=== PATIENT | female | born 1980 | race Caucasian/White ===

== ENCOUNTER 2024-05-29 20:27 | Emergency (ER) | payer OTHER, SELFPAY ==
[2024-05-29 20:44] VITALS: BP 130/91; PULSE 86; TEMP 37; O2SAT 97; BMI 27.4
--- NOTE | 2024-05-29 20:54 | XR_ITS ---
The [address] [address] Patient Name: YORDY CARDOSO MRN: [id number] date: 1980 Sex: F Assigned Patient Location: ER Current Patient Location: ED.MAIN Accession/Order Number: [id number] Exam Date: 05/29/2024 21:25 Report Date: 05/29/2024 22:21 At the request of: ARIADNE PACE Procedure: XR ankle LT min 3V PROCEDURE: XR ankle LT min 3V HISTORY: injury COMPARISON: None. FINDINGS: BONES:Several tiny calcifications which appear to have corticated margins distal to the medial malleolus. Single corticated ossification adjacent tip of lateral malleolus. Normal appearance of ankle mortise. SOFT TISSUES:Soft tissue swelling surrounding the ankle. EFFUSION:None visible. OTHER: Negative. XR/XR ankle LT min 3V IMPRESSION: 1. No convincing acute bone abnormality. 2. Moderate swelling suggesting soft tissue injury. Electronically authenticated by: CLARA HUGO Date: 05/29/2024 22:21
--- NOTE | 2024-05-29 22:09 | ED.LOWEXI1 ---
HPI HPI - Extremity Injury (Lower) General Chief Complaint: Extremity Injury, Lower Stated Complaint: LEFT LOWER EXTREMITY INJURY Time Seen by Provider: 05/29/24 20:54 Source: patient Mode of arrival: walk-in Limitations: no limitations History of Present Illness HPI Narrative: This 44-year-old female presents for evaluation of left lateral ankle pain swelling and bruising. The patient states that she tripped over her dog yesterday. She has pain with ambulation and has been using crutches. She states her cousin saw her foot and felt that it was cold and told her to come to the emergency department to see if she tore a ligament or something. She denies any additional injury relating to her fall. She states she gets nervous because she has had to be in a cast for different times due to injuries to the left foot and ankle. She has no calf pain or swelling. She declines any for any medications. She has been using an Crow wrap. Related Data Home Medications ?Medication ?Instructions ?Recorded ?Confirmed No Known Home Medications 05/29/24 05/29/24 Allergies Allergy/AdvReac Type Severity Reaction Status Date / Time No Known Drug Allergies Allergy Verified 05/29/24 20:49 Opioid HPI Opioid Management Most Recent Pain and Opioid Data: No Data to Display Review of Systems ROS Status of ROS 10 or more systems reviewed and unremarkable except as noted in history and below PFSH PFSH Social History Little interest or pleasure in doing things: not at all Feeling down, depressed, or hopeless: not at all Exam Narrative Exam Narrative: Vital signs and Nursing Notes reviewed: Patient is not hypoxic with pulse ox 97% on room air General: Awake, alert, oriented, no acute distress, lying comfortably on the stretcher HEENT: Normocephalic atraumatic, mucous membranes are moist and pink, eyes are clear, normal conjunctiva, vision is grossly intact Chest: Lungs are clear to auscultation with good air entry, there is no wheezing rhonchi or rales appreciated no accessory muscle use, patient is speaking in complete sentences-no chest wall tenderness to palpation CVS: Regular rate and rhythm S1-S2, no murmurs rubs or gallops, pulses are brisk and equal bilaterally Extremities: Mild tenderness with bruising at the lateral malleolus. Achilles is intact. Foot is warm and sensate. Dorsalis pedis and posterior tibialis pulses are brisk and equal. Skin: Normal in appearance without rash,pallor, petechiae or purpura Neuro: No focal deficits Constitutional Vital Signs, click to edit/add: Last Vital Signs Temp 98.6 F 05/29/24 20:44 Pulse 86 05/29/24 20:44 Resp 16 05/29/24 20:44 BP 130/91 05/29/24 20:44 Pulse Ox 97 05/29/24 20:44 O2 Del Method Room Air 05/29/24 20:44 Course Vital Signs Vital signs: Vital Signs Temperature 98.6 F 05/29/24 20:44 Pulse Rate 86 05/29/24 20:44 Respiratory Rate 16 05/29/24 20:44 Blood Pressure 130/91 05/29/24 20:44 Pulse Oximetry 97 05/29/24 20:44 Oxygen Delivery Method Room Air 05/29/24 20:44 Temperature 98.6 F 05/29/24 20:44 Pulse Rate 86 05/29/24 20:44 Respiratory Rate 16 05/29/24 20:44 Blood Pressure 130/91 05/29/24 20:44 Pulse Oximetry 97 05/29/24 20:44 Oxygen Delivery Method Room Air 05/29/24 20:44 MDM - Extremity Injury (Lower) MDM Narrative Medical decision making narrative: This 44-year-old female that has had left foot and ankle problems in the past presents for evaluation of left lateral malleolus pain and swelling with some bruising after she tripped over her dog yesterday. She has been using crutches since that time due to pain with ambulation. She is neurovascularly intact. She declined the need for any medications. She had the ankle Crow wrapped and has been using crutches. I reviewed her x-ray which does not show any fracture, dislocation with some mild soft tissue swelling. She was agreeable to an air splint and will follow-up with her family physician. I offered to refer her to outpatient podiatry/orthopedics but she declines at this time stating if it is not broken she does not want to follow-up. Discharge Plan Discharge Chief Complaint: Extremity Injury, Lower Clinical Impression: Ankle sprain and strain Patient Disposition: Home, Self-Care Time of Disposition Decision: 22:09 Condition: Good Prescriptions / Home Meds: No Action No Known Home Medications Print Language: Jordanian Instructions: Ankle Sprain (ED) Referrals: Physician,Non-Staff, [Primary Care Provider] - 1 week Eduardo Davis DPM [Physician] - 1 week
== END 2024-05-29 22:32 | disposition home or self-care (01) ==
PROVIDERS: Emergency Provider Emergency Medicine
DX: S93.402A Sprain of unspecified ligament of left ankle, initial encounter (principal); S96.912A Strain of unspecified muscle and tendon at ankle and foot level, left foot, initial encounter; W01.0XXA Fall on same level from slipping, tripping and stumbling without subsequent striking against object, initial encounter
CPT/HCPCS: 73610; 99285

== ENCOUNTER 2025-03-14 20:14 | Outpatient (REF) | payer OTHER, SELFPAY ==
--- OUTSIDE RECORDS SUMMARY | 2025-03-14 20:32 | XMS_ITS | CCD ---
Author Organization [facility] Care Team Providers Care Camelid Fiber Sorter Name Role Phone FAWWAD, VALLECILLO H Admitting Unavailable FAWWAD, VALLECILLO H Attending Unavailable FAWWAD, VALLECILLO H Primary Care Unavailable FAWWAD, VALLECILLO H Consulting Unavailable KARASIK, DR OCAMPO Admitting Unavailable KARASIK, DR OCAMPO Attending Unavailable FAWWAD, VALLECILLO H Primary Care Unavailable KARASIK, DR OCAMPO Consulting Unavailable KARASIK, DR OCAMPO Admitting Unavailable KARASIK, DR OCAMPO Attending Unavailable FAWWAD, VALLECILLO H Primary Care Unavailable KARASIK, DR OCAMPO Consulting Unavailable ZIEBER, DR JOSE Jj Consulting Unavailable WEST, DR SHAUN Villaseñor Admitting Unavailable WEST, DR SHAUN Villaseñor Attending Unavailable FAWWAD, VALLECILLO H Primary Care Unavailable WEST, DR SHAUN Villaseñor Consulting Unavailable FAWWAD, VALLECILLO H Admitting Unavailable FAWWAD, VALLECILLO H Attending Unavailable FAWWAD, VALLECILLO H Primary Care Unavailable FAWWAD, VALLECILLO H Consulting Unavailable FAWWAD, VALLECILLO H Admitting Unavailable FAWWAD, VALLECILLO H Attending Unavailable FAWWAD, VALLECILLO H Primary Care Unavailable FAWWAD, VALLECILLO H Consulting Unavailable Problems Active Problems Problem ClassificationProblemDateDocumented DateEpisodic/ChronicCardiac dysrhythmias (1 source)Ventricular premature depolarization; Translations: [VENTRICULR PREMATURE DEPOLARIZATION]Onset: 61-75-7755GnlxdxzPclrb screening for suspected conditions (not mental disorders or infectious disease) (10 sources)Encounter for screening mammogram for malignant neoplasm of breast; Translations: [Encounter for screening for malignant neoplasm of cervix]Onset: 36-45-7761Zuaeuwwq Past or Other Problems Problem ClassificationProblemDateDocumented DateEpisodic/ChronicCardiac dysrhythmias (5 sources)Palpitations; Translations: [PALPITATIONS]Onset: 70-35-2877Wjclknwp Immunizations and screening for infectious disease (1 source)Encounter for screening for human papillomavirus (HPV); Translations: [ENC SCREENING HUMAN PAPILLOMAVIRUS]Onset: 25-48-0469Iybpzziw Results Test NameValueInterpretationReference RangeFacilityMG MAMM SCREEN 3D SUDHIR CADon [id number] MAMM SCREEN 3D SUDHIR CADPatient: YORDY CARDOSO Exam Date: 09/03/2021 : 1980 Gender:F Ordering : DR DAMARIS SARAVIA . Admission #: [id number] Family : Order #: [id number] CLICK HERE TO VIEW EXAM RADIOLOGY REPORT PROCEDURE: MAMMOGRAM SCREENING 3D BILATERAL CAD COMPARISON: MG MAMM SUDHIR DIAG W CAD, 02/02/2017. MG MAMM SUDHIR DIAG W CAD, 10/10/2015. INDICATIONS: Screening mammography Calculator Name NCI Breast Cancer Risk Assessment Tool 5 Year Breast Cancer Risk Not Reported. Lifetime Breast Cancer Risk Not Reported. Personal Breast Cancer No Personal Ovarian Cancer No Treatments None Family Cancers None LOCATION: [facility] BREAST COMPOSITION: Heterogeneously dense,which may obscure small masses. FINDINGS: DIAGNOSTIC CATEGORY 1--NEGATIVE. RIGHT BREAST: No significant suspicious finding. No significant change has occurred. LEFT BREAST: No significant suspicious finding. No significant change has occurred. RECOMMENDATIONS: ROUTINE MAMMOGRAM AND CLINICAL EVALUATION IN 12 MONTHS. PLEASE NOTE: A NORMAL MAMMOGRAM DOES NOT EXCLUDE THE POSSIBILITY OF BREAST CANCER. A CLINICALLY SUSPICIOUS PALPABLE LUMP SHOULD BE BIOPSIED. Dictated by: Jose Dumont M.D. on 09/03/2021 at 12:22 Approved by: Jose Dumont M.D. on 09/03/2021 at 12:25[facility] SystemPA ACOG PANEL 2: 30 to 65on 06-14-2021..NormalThe [facility] Comment on above:Result Comment: Performed at: WBPerformed By: #### [id number] #### [facility] [address] [place] [address] Dr. Arie Clement Gdln ACOG Tduulup73-60JchpebNfcMorrow County HospitalComment on above:Performed By: #### [id number] #### [facility] [address] [place] [address] Dr. Arie LondonDIAGNOSIS:CommentNoFairfield Medical Center on above: Result Comment: NEGATIVE FOR INTRAEPITHELIAL LESION OR MALIGNANCY. Performed at: WBPerformed By: #### [id number] #### [facility] [address] [place] [address] Dr. rAie LondonHPV AptimaNegativeNormalNegativeThe [facility] on above:Result Comment: This nucleic acid amplification test detects fourteen high-risk HPV types (16,18,31,33,35,39,45,51,52,56,58,59,66,68) without differentiation. Performed at: =GPerformed By: #### [id number] #### [facility] [address] [place] [address] Dr. Arie LondonMethodology:CommentNoFairfield Medical Center on above: Result Comment: This liquid based ThinPrep(R) pap test was screened with the use of an image guided system. Performed at: WBPerformed By: #### [id number] #### [facility] [address] [place] [address] Dr. Arie LondonNote:CommentNoFairfield Medical Center on above:Result Comment: The Pap smear is a screening test designed to aid in the detection of premalignant and malignant conditions of the uterine cervix. It is not a diagnostic procedure and should not be used as the sole means of detecting cervical cancer. Both false-positive and false-negative reports do occur. . Performed at: WBPerformed By: #### [id number] #### [facility] [address] [place] [address] Dr. Arie LondonPerformed by:CommentNoFairfield Medical Center on above: Result Comment: Alida Boyd, Export Clerk (ASCP) Performed at: WBPerformed By: #### [id number] #### [facility] [address] [place] [address] Dr. Arie LondonSpecimen adequacy:CommentNormalThe Paul HospitalComment on above:Result Comment: Satisfactory for evaluation. No endocervical cells are present. This is consistent with a history of hysterectomy. Performed at: WBPerformed By: #### [id number] #### [facility] [address] [place] [address] Dr. Arie CastroCARDIO M/2D COMPLETEon [id number] M/2D COMPLETE Patient: YORDY CARDOSO Exam Date: 02/14/2021 : 1980 Gender:F Ordering : SHAIKH Heriberto LAIRD . Admission #: [id number] Family : Order #: [id number] CLICK HERE TO VIEW EXAM ECHOCARDIOGRAM REPORT PROCEDURE: CARDIO PULMONARY ECHOCARDIO M/2D COMP INDICATIONS: Palpitations COMPARISON: None. DESCRIPTION: COMPLETE ECHOCARDIOGRAM Real-time transthoracic echocardiography with 2D, M-mode, spectral and color flow Doppler performed. QUALITY: Technical quality was good. LEFT VENTRICLE: Normal chamber size. Normal left ventricular wall thickness. No regional wall motion abnormalities. LV EF: Normal left ventricular ejection fraction, (60-65%). DIASTOLIC: Normal diastolic function. ATRIAL SEPTUM: Visually appears intact. LEFT ATRIUM: Normal chamber size. RIGHT ATRIUM: Normal chamber size. RIGHT VENTRICLE: Normal chamber size. Normal systolic function. TRICUSPID VALVE: Normal mobility and thickness. No stenosis with trivial regurgitation. No evidence of pulmonary hypertension. RVSP 21 mmHg MITRAL VALVE: Normal mobility and thickness. No evidence of mitral valve stenosis. There is no mitral annular calcification. Trivial mitral regurgitation. AORTIC VALVE: Normal trileaflet appearance. No visible sclerosis. Normal leaflet mobility. No evidence of aortic valve stenosis. No aortic regurgitation. AORTIC ROOT: Normal diameter and appearance. Aortic arch is normal in size. PULMONIC VALVE: Normal thickness and mobility. No stenosis. No regurgitation. PERICARDIUM: No evidence of pericardial effusion. IVC: Collapses with inspirations. IVC is normal in size. PLEURA: CONCLUSION: 1. Normal ventricular function. LVEF 60-65%. 2. Normal valvular function. 3. Normal right-sided pressures. 4. No pericardial effusion. Adult Echocardiography Procedure Report Left Ventricle LVEDD (3.7 - 5.6 cm): 4.10 cm LVESD (2.2 - 4.0 cm): 2.72 cm LVIVS thickness (0.6 - 1.2 cm): 1.13 cm LVPW thickness (0.5 - 1.0 cm): 8.12 mm e': 11.00 cm/s E - e': 5.20 LVOT Area (cm2): 4.52 cm2 LVOT Diameter 2.40 cm Left Ventricular Ejection Fraction: 62.90 % Left Atrium LA Volume Index (2D A2C): 18.90 ml/m2 Left Atrium Systolic Dimension: 2.90 cm Left Atrium Systolic Area(A2C): 14.30 cm2 Left Atrium Systolic Area(A4C): 16.20 cm2 Left Atrium Systolic Volume(A2C): 44171 mm3 Left Atrium Systolic Volume(A4C): 59582 mm3 Mitral Valve MV E to A Ratio: 1.20 Mitral Valve A-Wave Peak Velocity: 46.90 cm/s Mitral Valve E-Wave Peak Velocity: 57.30 cm/s Deceleration Time: 222 ms Right Ventricle Aorta AO Root Diam: 3.10 cm Aortic Valve AoV Area (Pe[place]): 3.49 cm2 Peak Velocity(Antegrade Flow): 91.50 cm/s Peak Gradient(Antegrade Flow): 3 mm[Hg] Tricuspid Valve Peak Velocity (Regurgitant Flow): 197.00 cm/s Pulmonic Valve Peak Velocity: 92.60 cm/s Peak Gradient: 3 mm[Hg] Right Atrium Dictated by: Guero Han M.D. on 02/14/2021 at 11:56 Approved by: Guero Han M.D. on 02/14/2021 at 11:58NormalThFulton County Health Center AUTO DIFFon [id number] #0.0 103/ulNormal0.0-0.1The [facility]Comment on above:Performed By: #### CBC #### [facility] [address] [address] Beatrice KarenBasophils/100 WBC (Bld)0.5 %Normal0.2-2.0[facility] Comment on above:Performed By: #### CBC #### [facility] [address] [address] Beatrice KarenEO #0.2 103/ulNormal0.0-0.7The [facility]imaComment on above: Performed By: #### CBC #### [facility] [address] [address] Beatrice KarenEosinophils/100 WBC (Bld)3.5 %Normal0.9-7.0[facility] Comment on above:Performed By: #### CBC #### [facility] [address] [place] [address] Beatrice KarenErythrocyte distribution width (RBC) [Ratio]11.8 %Ityqgk31.0-15.0[facility]imaComment on above:Performed By: #### CBC #### [facility] [address] [place] [address] Beatrice KarenHematocrit (Bld) [Volume fraction]43.5 %Maryfb84.0-48.0The [facility] Campusment on above:Performed By: #### CBC #### [facility] [address] [place] [address] Beatrice KarenHemoglobin (Bld) [Mass/Vol]14.2 g/wTGivmkd70.0-16.0The [facility]imaComment on above:Performed By: #### CBC #### [facility] [address] [place] [address] Beatrice KarenIG #0.01 10e3/ulNormal0.00-0.03The [facility] Campusment on above:Performed By: #### CBC #### [facility] [address] [place] [address] Beatrice KarenIG %0.2 %Normal0.0-0.5The [facility] Campusment on above: Performed By: #### CBC #### [facility] [address] [place] [address] Beatrice KarenLYMPH #2.1 103/ulNormal1.2-3.8The [facility] LimaComment on above: Performed By: #### CBC #### [facility] [address] [place] [address] Beatrice KarenLymphocytes/100 WBC (Bld)33.4 %Xzxmdp15.5-60.0[facility] Comment on above:Performed By: #### CBC #### [facility] [address] [place] [address] Beatrice KarenMANUAL DIFF REQNONormalThe [facility] LimaComment on above: Performed By: #### CBC #### [facility] [address] [place] [address] Beatrice KarenMCH (RBC) [Entitic mass]30.8 hdSqtwrq94.7-34.0[facility] Comment on above:Performed By: #### CBC #### [facility] [address] [place] [address] Beatrice KarenMCHC (RBC) [Mass/Vol]32.6 g/kSEeywnn76.9-35.2[facility] Comment on above:Performed By: #### CBC #### [facility] [address] [place] [address] Beatrice KarenMCV (RBC) [Entitic vol]94.4 qCPooodl53.0-99.0[facility] Comment on above:Performed By: #### CBC #### [facility] [address] [place] [address] Beatrice KarenMONO #0.6 103/ulNormal0.3-0.8The [facility] LimaComment on above: Performed By: #### CBC #### [facility] [address] [place] [address] Beatrice KarenMonocytes/100 WBC (Bld)8.8 %Normal1.7-12.0[facility] Comment on above:Performed By: #### CBC #### [facility] [address] [place] [address] Beatrice KarenNEUT #3.4 103/ulNormal1.4-6.5The [facility]imaComment on above: Performed By: #### CBC #### [facility] [address] [place] [address] Beatrice KarenNeutrophils/100 WBC (Bld)53.6 %Xjiaoh07.0-75.0[facility] Comment on above:Performed By: #### CBC #### [facility] [address] [address] Beatrice MayenPlatelet mean volume (Bld) [Entitic vol]9.7 fLNormal9.5-13.5The [facility] LimaComment on above:Performed By: #### CBC #### [facility] [address] [place] [address] Beatrice PycdmTZJ701 103/bdQmsfvm569-137Mqz [facility] LimaComment on above: Performed By: #### CBC #### [facility] [address] [place] [address] Beatrice KarenRBC4.61 106/ulNormal4.20-5.40The [facility] LimaComment on above: Performed By: #### CBC #### [facility] [address] [place] [address] Beatrice KarenWBC6.3 103/ulNormal4.0-11.0The [facility] LimaComment on above: Performed By: #### CBC #### [facility] [address] [place] [address] Beatrice KarenGLYCOHEMOGLOBIN A1Con [id number] RECOMMENDATIONADA THERAPEUTIC TARGET 6.0 - 7.0 ACTION SUGGESTED > 7.0NoMorrow County HospitalComment on above:Performed By: #### A1C #### [facility] [address] [place] [address] Beatrice KarenGlucose [Mass/Vol]100 mg/dLNoMorrow County HospitalComment on above:Performed By: #### A1C #### [facility] [address] [place] [address] Beatrice XkgslBwS3o (Bld) [Mass fraction]5.1 %Normal<=6.0[facility] Comment on above:Performed By: #### A1C #### [facility] [address] [place] [address] Beatrice KarenLIPID PROFILEon 56-44-8660APIW-HDL RATIO NORMSEE BELOWAvita Health SystemComment on above:Result Comment: 3.3 - 4.4 LOW RISK 4.4 - 7.1 AVERAGE RISK 7.1 - 11.0 MODERATE RISK >11.0 HIGH RISKPerformed By: #### TSH, LIPID, CMP #### [facility] [address] [address] Beatrice KarenCholesterol [Mass/Vol]190 mg/dLNormal<=200[facility] Comment on above:Performed By: #### TSH, LIPID, CMP #### [facility] [address] [address] Beatrice KarenCholesterol in HDL [Mass/Vol]60 mg/dLAvita Health System Comment on above:Performed By: #### TSH, LIPID, CMP #### [facility] [address] [place] [address] Beatrice KarenCholesterol in LDL [Mass/Vol]113.6 mg/dLAvita Health System Comment on above:Performed By: #### TSH, LIPID, CMP #### [facility] [address] [place] [address] Beatrice KarenCholesterol.total/Cholesterol in HDL [Mass ratio]3.2 {ratio}Normal [facility] Medical CenterComment on above:Performed By: #### TSH, LIPID, CMP #### [facility] [address] [place], [place] [address] Beatrice KarenHDL NORMAL> or = 60 mg/dl - LOW CARDIOVASCULAR RISK <40 mg/dl - HIGH CARDIOVASCULAR RISKAvita Health SystemComment on above:Performed By: #### TSH, LIPID, CMP #### [facility] [address] [place] [address] Beatrice KarenLDL CALC NORMALSEE BELOWAvita Health SystemComment on above: Result Comment: <100 mg/dl OPTIMAL 100 - 129 mg/dl NEAR OR ABOVE OPTIMAL 130 - 159 mg/dl BORDERLINE HIGH 160 - 189 mg/dl HIGH >190 mg/dl VERY HIGHPerformed By: #### TSH, LIPID, CMP #### [facility] [address] [place] [address] Beatrice KarenTriglyceride [Mass/Vol]82 mg/dLNormal<=150[facility] Comment on above:Performed By: #### TSH, LIPID, CMP #### [facility] [address] [address] Beatrice KarenVLDL CALC16.4 mg/dLNormalThe [facility]imaComment on above: Performed By: #### TSH, LIPID, CMP #### [facility] [address] [address] Beatrice KarenPROF 14(COMP METB)on 46-34-5541Rofclkm [Mass/Vol]3.9 g/dLNormal 3.5-5.0The [facility]imaComment on above:Performed By: #### TSH, LIPID, CMP #### [facility] [address] [address] Beatrice KarenAlbumin/Globulin [Mass ratio]1.3 {ratio}NormalUniversity Hospitals Beach[facility] Comment on above:Performed By: #### TSH, LIPID, CMP #### [facility] [address] [address] Beatrice KarenALP [Catalytic activity/Vol]63 U/WPakebm49-277BrmUniversity Hospitals Beach[facility] Center Comment on above:Performed By: #### TSH, LIPID, CMP #### [facility] [address] [place] [address] Beatrice KarenALT [Catalytic activity/Vol]20 U/LNormal9-52[facility] Comment on above:Performed By: #### TSH, LIPID, CMP #### [facility] [address] [address] Beatrice KarenAnion gap [Moles/Vol]13.9 mmol/LNormalUniversity Hospitals Beachwood Medical CenterComment on above:Performed By: #### TSH, LIPID, CMP #### [facility] [address] [place], [place] [address] Beatrice KarenAST [Catalytic activity/Vol]20 U/JKbpkzx21-84DoyUniversity Hospitals Beach[facility] Center Comment on above:Performed By: #### TSH, LIPID, CMP #### [facility] [address] [place] [address] Beatrice KarenBilirubin [Mass/Vol]0.4 mg/dLNormal0.2-1.3TTriHealth Good Samaritan [facility] Comment on above:Performed By: #### TSH, LIPID, CMP #### [facility] [address] [place] [address] Beatrice KarenCalcium [Mass/Vol]9.1 mg/dLNormal8.4-10.2The [facility] Comment on above:Performed By: #### TSH, LIPID, CMP #### [facility] [address] [place] [address] Beatrice KarenChloride [Moles/Vol]104 mmol/ZBojfiy70-313Hvh [facility] Comment on above:Performed By: #### TSH, LIPID, CMP #### [facility] [address] [place] [address] Beatrice KarenCO2 [Moles/Vol]28.3 mmol/VOwhwpb31.0-30.0[facility] Comment on above:Performed By: #### TSH, LIPID, CMP #### [facility] [address] [place] [address] Beatrice KarenCreatinine [Mass/Vol]0.93 mg/dLNormal0.52-1.04[facility] Comment on above:Performed By: #### TSH, LIPID, CMP #### [facility] [address] [place] [address] Beatrice KarenEGFR-AF INDIAN>60Normal>=60The [facility]imaComment on above: Performed By: #### TSH, LIPID, CMP #### [facility] [address] [place] [address] Beatrice KarenEGFR-NON AF INDIAN>60Normal>=60[facility] Medical CenterComment on above:Performed By: #### TSH, LIPID, CMP #### [facility] [address] [place] [address] Beatrice KarenGlobulin (S) [Mass/Vol]3.1 g/dLNormalThe [facility]imaComment on above:Performed By: #### TSH, LIPID, CMP #### [facility] [address] [place] [address] Beatrice KarenGlucose [Mass/Vol]91 mg/lYUvtawm74-197Kvt [facility]imaComment on above:Performed By: #### TSH, LIPID, CMP #### [facility] [address] [place] [address] Beatrice KarenPotassium [Moles/Vol]4.2 mmol/LNormal3.4-5.0[facility] Comment on above:Performed By: #### TSH, LIPID, CMP #### [facility] [address] [place] [address] Beatrice KarenProtein [Mass/Vol]7.0 g/dLNormal6.1-8.2The [facility] LimaComment on above:Performed By: #### TSH, LIPID, CMP #### [facility] [address] [place] [address] Beatrice KarenSodium [Moles/Vol]142 mmol/XOqoisf754-882Snc [facility] Comment on above:Performed By: #### TSH, LIPID, CMP #### [facility] [address] [place] [address] Beatrice KarenUrea nitrogen [Mass/Vol]18.0 mg/dLCritically high7.0-17.0[facility] CenterComment on above:Performed By: #### TSH, LIPID, CMP #### [facility] [address] [place] [address] Beatrice KarenUrea nitrogen/Creatinine [Mass ratio]19.4 mg/mgNoMorrow County HospitalComment on above:Performed By: #### TSH, LIPID, CMP #### [facility] [address] [place] [address] Beatrice KarenTSHon 17-08-5666AUV3.772 uIU/mLNormal0.470-4.680The [facility]imaComment on above:Performed By: #### TSH, LIPID, CMP #### [facility] [address] [place] [address] Beatrice KarenTSH RANGESEE BELOWAvita Health SystemComment on above:Result Comment: <0.34 UIU/ml HYPERTHYROID 0.34-5.60 UIU/ml EUTHYROID >5.60 UIU/ml HYPOTHYROIDPerformed By: #### TSH, LIPID, CMP #### [facility] [address] [place] [address] Beatrice Sampson Encounters Encounter DateEncounter TypeCare ProviderFacilityStart: 09-03-2021 End: 10-05-9591zkgoaesltxDT DAMARIS MAYYOLANDAFacility:D7Jqcub: 06-10-2021 End: 91-67-6073quttbwqbfzPX GREGORY KARASIKFacility:D2Vsdhh: 03-10-2021 End: 67-99-8743mcytqcnggaOR SHAUN Villaseñor WESTFacility:J5Ynlsq: 02-14-2021 End: 68-48-6058lvnrgakygyGDUCPZ H FAWWADFacility:E0Taqft: 94-53-3365Ylitlgtwj for general adult medical examination without abnormal findingsANDRES LAIRD [facility] Hospitaltart: 01-09-2021 End: 14-69-1911vskpocytfuRPZLKM H FAWWADFacility:F6Fnbig: 01-08-2021 End: 63-81-9685udfexxxnjjSBVMXE H FAWWADFacility:P4Ebfzo: 01-08-2021 End: 72-17-8587Agitpkaaj for general adult medical examination without abnormal findingsSHAIKH Darlin FAWWADFacility:H1 Payers DatePayer CategoryPayerPolicy [id number] Summary Purpose Family History No Family History Records Found Advance Directives No Advanced Directives Records Found Additional Source Comments INFORMATION SOURCE (unrecogn ized section and content) DATE CREATED AUTHOR 10/27/2021 [facility] FOR RECORDS PERTAINING TO PATIENTS WHO ARE OR HAVE BEEN ENROLLED IN A CHEMICAL DEPENDENCY/SUBSTANCEABUSE PROGRAM, SOME INFORMATION MAY BE OMITTED. This clinical summary was aggregated from multiple sources. Caution should be exercised in using it in the provision of clinical care. This summary normalizes information from multiple sources, and as a consequence, information in this document may materially change the coding, format and clinical context of patient data. In addition, data may be omitted in some cases. CLINICAL DECISIONS SHOULD BE BASED ON THE PRIMARY CLINICAL RECORDS. Do It In Person [facility]. provides no warranty or guarantee of the accuracy or completeness of information in this document.
--- OUTSIDE RECORDS SUMMARY | 2025-03-14 20:32 | XMS_ITS | Clinical Summary ---
Author Organization Pushfor [facility] tem Address [id number] [place] [address] Care Team Providers Care Bean Sprout Grower Name Role Phone Jayson Tatum MD Primary Care Provider [phone] Family History Medical HistoryRelationNameCommentsBreast cancerMaternal AuntRelationNameStatus CommentsMaternal Aunt Social History Tobacco UseTypesPacks/DayYears UsedDateSmoking Tobacco: Never AssessedChildcare AnswerDate YtuyklabPrwziautcXxxwwbm01/12/2019EmploymentAnswerDate Recorded UmrtgkfoucSodredo08/12/2019Purpose - LifeAnswerDate RecordedPurpose and direction in xjesElxefcb78/11/2021CommentsUnknownSex and Gender InformationValueDate RecordedSex Assigned at BirthNot on fileLegal SexFemale 10/03/2015 10:01 AM EDTGender IdentityNot on fileSexual OrientationNot on file Plan of Treatment Health MaintenanceDue DateLast DoneCommentsDepression Wvqombpht58/04/1992Tobacco Segjvurso11/04/1992Adult BMI Kseaqkzhf48/04/1998DTaP,Tdap and Td Vaccines (1 - Tdap)01/18/1999Pap Smear01/18/2001Influenza Fxysnuy9101/15/2025 Medical Devices Not on file Insurance Care Teams Team MemberRelationshipSpecialtyStart DateEnd Date Jayson Tatum MD [facility]02/02/17
--- OUTSIDE RECORDS SUMMARY | 2025-03-14 20:32 | XMS_ITS | Clinical Summary ---
Author Organization [facility] Address [address] [place] [address] Care Team Providers Care Practice Consultant Name Role Phone Unavailable Primary Care Provider Unavailabl e Social History Tobacco UseTypesPacks/DayYears UsedDateSmoking Tobacco: Never AssessedUT Safety & EnvironmentAnswerDate RecordedFear of Current or Ex-PartnerNot on file 07/08/2023Emotionally AbusedNot on file07/08/2023hysically AbusedNot on file 07/08/2023Sexually AbusedNot on file07/08/2023hysically or Sexually AbusedNot on file07/08/2023CommentsUnknownSex and Gender InformationValueDate RecordedSex Assigned at BirthNot on fileLegal OnwQioxsk98/30/2022 12:40 AM EDT Gender IdentityNot on fileSexual OrientationNot on file Plan of Treatment Not on file
== END 2025-03-14 20:15 | disposition home or self-care (01) ==
LOC: LAB 20:14
PROVIDERS: Visit Provider Physician Assistant
DX: Z01.419 Encounter for gynecological examination (general) (routine) without abnormal findings (principal)
CPT/HCPCS: 87624; 88175

== ENCOUNTER 2025-03-29 14:09 | Outpatient (OUT) | payer OTHER, SELFPAY ==
--- OUTSIDE RECORDS SUMMARY | 2025-03-22 14:50 | XMS_ITS | Encounter Summary ---
Author Organization [facility] Address [address] [place] [address] Care Team Providers Care Associate Professor Of Library Science Name Role Phone Unavailable Primary Care Provider Unavailabl e Reason for Visit * ReasonCommentsOtogenetics Testing Encounter Details DateTypeDepartmentCare Team (Latest Contact Info)Sdokglnbgsq66/06/2025 2:50 PM ESTClinical Support [facility] [address] [place] [address] [place] [address] Family history of breast cancer Social History Tobacco UseTypesPacks/DayYears UsedDateSmoking Tobacco: Never Assessed CommentsUnknownSex and Gender InformationValueDate RecordedSex Assigned at Not on fileLegal TfsTtkiyd69/15/2023 7:21 PM EDTGender IdentityNot on fileSexual OrientationNot on filedocumented as of this encounter Last Filed Vital Signs Vital SignReadingTime TakenCommentsBlood Czfeikfk183/8603/22/2025 3:17 PM EST Pulse--Temperature--Respiratory Rate--Oxygen Saturation--Inhaled Oxygen Concentration--Rcsjte85.8 kg (171 lb 8 oz)03/22/2025 3:17 PM ESTHeight--Body Mass Index27.6810 3:10 PM EDTdocumented in this encounter Progress Notes * Zeenat Dorsey MA - 03/22/2025 2:50 PM EST Reason for Appointment: Patient ID: Shobha Childers is a 45 y.o. female who presents for Otogenetics Testing Patient presents today for Otogenetics Testing MEDICATIONS No current outpatient medications ALLERGIES No Known Allergies PROBLEMS Active Ambulatory Problems Diagnosis Date Noted No Active Ambulatory Problems Resolved Ambulatory Problems Diagnosis Date Noted No Resolved Ambulatory Problems No Additional Past Medical History HISTORY PAST MEDICAL HISTORY SOCIAL HISTORY No past medical history on file. Social History Tobacco Use Smoking status: Not on file Smokeless tobacco: Not on file Substance Use Topics Alcohol use: Not on file Drug use: Not on file FAMILY HISTORY No family history on file. SURGICAL HISTORY No past surgical history on file. REVIEW OF SYSTEMS Review of Systems: Review of Systems Constitutional: Negative. HENT: Negative. Eyes: Negative. Respiratory: Negative. Cardiovascular: Negative. Gastrointestinal: Negative. Genitourinary: Negative. Musculoskeletal: Negative. Skin: Negative. Neurological: Negative. All other systems reviewed and are negative. Hematological: Negative. Endocrine: Negative. Allergic/Immunologic: Negative. OBJECTIVE Objective: Otogenetics Testing Vitals: Estimated body mass index is 27.68 kg/m?? as calculated from the following: Height as of 03/14/25: 5' 6 . Weight as of this encounter: 171 lb 8 oz. BP: 126/86 No LMP recorded. Assessment/Plan Nurse Note: Pt filled out Hereditary Cancer Family History and Risk Assessment form. Pt denies anything to eat or drink for the past 30 minutes. Buccal Swab obtained, pt tolerated well. Pt denies any further questions. Documented by Zeenat Dorsey MA on behalf of: * No providers found * documented in this encounter Plan of Treatment DateTypeDepartmentCare Team (Latest Contact Info)Elcckkazhgl01/04/2026 3:00 PM ESTProcedure Visit [facility]CE[facility] [address] [facility] [place] [address] Magaly Peres PA [address] [facility] [address] [place], [place] [id number] documented as of this encounter Visit Diagnoses Diagnosis Family history of breast cancer Family history of malignant neoplasm of breast documented in this encounter
--- OUTSIDE RECORDS SUMMARY | 2025-03-29 14:14 | XMS_ITS | Clinical Summary ---
Author Organization [facility] Address [address] [place] [address] Care Team Providers Care Automation Technician Name Role Phone Unavailable Primary Care Provider Unavailabl e Allergies No known active allergies Medications No known medications Encounters DateTypeDepartmentCare BhoeOcfihzssxli39/12/2025Orders Only [facility] [address]O [address] [place] [address] Haleigh Good MA 03/22/2025 2:50 PM ESTClinical Support [facility] [address] [place] [address] Family history of breast hhkmeu6503/22/2025bstract [facility] [address] [place] [address] Aravind Graf DO 03/14/2025 3:00 PM EDTProcedure Visit [facility] MARCELO [address] [place] [address] Magaly Peres PA Well woman exam with routine gynecological exam; Encounter for screening mammogram for malignant neoplasm of gmbmmc2503/14/2025 Clinisync Result Encounter [facility] External Department Unsolicited Magaly Peres PA 03/14/2025amboo flowsheet [facility]ARC[facility]O [address] [place] [address] Magaly Peres PA 02/15/2025Telephone [facility] [address] [place] [address] Zeenat Dorsey MA from Last 3 Months Social History Tobacco UseTypesPacks/DayYears UsedDateSmoking Tobacco: Never Assessed CommentsUnknownSex and Gender InformationValueDate RecordedSex Assigned at Not on fileLegal IyuAardfz71/15/2023 7:21 PM EDTGender IdentityNot on fileSexual OrientationNot on file Last Filed Vital Signs Vital SignReadingTime TakenCommentsBlood Plldcfpg169/8603/22/2025 3:17 PM EST Pulse--Temperature--Respiratory Rate--Oxygen Saturation--Inhaled Oxygen Concentration--Axqqeg93.8 kg (171 lb 8 oz)03/22/2025 3:17 PM WFJVbzvbk447.6 cm (5' 6 )03/14/2025 3:10 PM EDTBody Mass Index27.6803/14/2025 3:10 PM EDT Plan of Treatment DateTypeDepartmentCare Team (Latest Contact Info)Vcssgagjclj57/04/2026 3:00 PM ESTProcedure Visit [facility] [address] [facility] [place] [phone] Magaly Peres PA [address] [facility] [address] [place], [place] [id number] Procedures Procedure NamePriorityDate/TimeAssociated DiagnosisCommentsIGP,APTIMA HPV,AGE URUBLvheidd69/29/2025 3:00 PM EDT PAP TEST, DGYBQXVLKlpvbrg02/29/2025 12:00 AM EDTfrom Last 3 Months Results * IGP,APTIMA HPV,AGE GDLN (03/14/2025 3:00 PM EDT)ComponentValueRef RangeTest MethodAnalysis TimePerformed AtPathologist SignatureAGE GDLN ACOG TESTINGNote. TBHComment: ?? TESTS ? RESULT ??FLAG ??UNITS ?REF RANGE ??LAB ?? Clinician Provided Cytology Information ?? Source.............Cervix;Endocervix ?? No. of containers..01 ThinPrep Vial Age Algo ACOG Janine... ??30-65 ? 01 ?FLAG LEGEND: ?L-Low Normal,H-High Normal,LL-Alert Low,HH-Alert High <-Panic Low,>-Panic High,A-Abnormal,AA-Critical Abnormal Performed at: 01 =G ?[facility] ?? [address] ??[phone] ?? Ana Varela MD, IGP, APTIMA HPV, RFX 16/18,45Note.TBHComment: ?? TESTS ? RESULT ??FLAG ??UNITS ?REF RANGE ??LAB DIAGNOSIS: ?02 ?? NEGATIVE FOR INTRAEPITHELIAL LESION OR MALIGNANCY. Specimen adequacy: ?02 ?? Satisfactory for evaluation. No endocervical component is identified. Performed by: ? 02 ?? Katherine Burk, Pattern Grader (ASCP) . ? 02 Note: ? Note ?02 ?? The Pap smear is a screening test designed to aid in the ?? detection of premalignant and malignant conditions of the ?? uterine cervix. ??It is not a diagnostic procedure and ?? should not be used as the sole means of detecting cervical ?? cancer. ??Both false-positive and false-negative reports do ?? occur. Test Methodology: ? Note ?02 ?? This liquid based ThinPrep(R) pap test was interpreted ?? using the [employer](R) Genius(TM) Cervical Algorithm whole ?? slide imaging system. HPV Genotype Reflex ?? Note ?02 ?? Criteria not met, HPV Genotype not performed. ?FLAG LEGEND: ?L-Low Normal,H-High Normal,LL-Alert Low,HH-Alert High <-Panic Low,>-Panic High,A-Abnormal,AA-Critical Abnormal Performed at: 02 WB ?[facility] ?? [address] [place], [place] ??[address] ?? Ana Varela MD, HPV APTIMANegativeNegativeTBHComment: This nucleic acid amplification test detects fourteen high- risk HPV types (16,18,31,33,35,39,45,51,52,56,58,59,66,68) without differentiation. Performed at: ??=G - [facility] ??[id number] Farm Equipment Service Technician: Ana Varela MD, Phone: ??[phone] Performed at: ?? - [facility] ??[id number] Farm Equipment Service Technician: Ana Varela MD, Phone: ??[phone] Specimen (Source)Anatomical Location / LateralityCollection Method / Volume Collection TimeReceived Time03/14/2025 3:00 PM EDT1 9:21 PM EDT Narrative [facility] - 03/19/2025 5:08 PM EST BRUSH-SPATULA CERVIX ENDOCERVIX Authorizing ProviderResult TypeResult StatusAmy Ja PALAB BLOOD ORDERABLES Final ResultPerforming OrganizationAddressCity/State/ZIP CodePhone Number [facility] * PAP TEST, EXTERNAL (03/14/2025 12:00 AM EDT) Narrative Authorizing ProviderResult TypeResult StatusAmy [place] PALAB CYTOLOGY ORDERABLES Final ResultPerforming OrganizationAddressCity/State/ZIP CodePhone Number EXTERNAL LAB from Last 3 Months Insurance * Guarantor: Alvarado, TiffanyAccount TypeRelation to PatientDate of BirthPhone Billing AddressPersonal/QvutmrZvft[address] [facility] [place] [address] [address] [place] [address]
--- OUTSIDE RECORDS SUMMARY | 2025-03-29 14:14 | XMS_ITS | Encounter Summary ---
Author Organization [facility] Address [address] [place] [address] Care Team Providers Care Staff Weapons Officer Name Role Phone Unavailable Primary Care Provider Unavailabl e Encounter Details DateTypeDepartmentCare Team (Latest Contact Info)Egjwznvcfxa80/06/2025bstract HAI MARCELO [address] [facility] [place] [address] Aravind Graf DO [address] [facility] [address] Tamara Miller, [facility]11 Social History Tobacco UseTypesPacks/DayYears UsedDateSmoking Tobacco: Never Assessed CommentsUnknownSex and Gender InformationValueDate RecordedSex Assigned at Not on fileLegal OoiQnbrop84/15/2023 7:21 PM EDTGender IdentityNot on fileSexual OrientationNot on filedocumented as of this encounter Plan of Treatment DateTypeDepartmentCare Team (Latest Contact Info)Rlqeukmwgcr21/04/2026 3:00 PM ESTProcedure Visit HAI MARCELO [address] [facility] [place] [address] Magaly Peres PA [address] [facility] [place] [address] documented as of this encounter Visit Diagnoses Not on filedocumented in this encounter
--- OUTSIDE RECORDS SUMMARY | 2025-03-29 14:14 | XMS_ITS | Encounter Summary ---
Author Organization [facility] Address [address] [facility] [place] [address] Care Team Providers Care Spacer Type Bar And Segment Name Role Phone Unavailable Primary Care Provider Unavailabl e Encounter Details DateTypeDepartmentCare Team (Latest Contact Info)Ahjlyneseab36/12/2025Orders Only HAI MARCELO [address] [place] [address] [place] [address] Haleigh Good MA [address] [facility] [place] [address] Social History Tobacco UseTypesPacks/DayYears UsedDateSmoking Tobacco: Never Assessed CommentsUnknownSex and Gender InformationValueDate RecordedSex Assigned at Not on fileLegal NeuJnyluc61/15/2023 7:21 PM EDTGender IdentityNot on fileSexual OrientationNot on filedocumented as of this encounter Plan of Treatment DateTypeDepartmentCare Team (Latest Contact Info)Vwqollbtyht81/04/2026 3:00 PM ESTProcedure Visit NOMAkil MARCELO [address] [facility] [place] [address] Magaly Peres PA [address] [facility] [address] [place], [facility]11 documented as of this encounter Procedures Procedure NamePriorityDate/TimeAssociated DiagnosisCommentsPAP TEST, EXTERNAL Xftglrn1503/14/2025 12:00 AM EDTdocumented in this encounter Results * PAP TEST, EXTERNAL (03/14/2025 12:00 AM EDT) Narrative Authorizing ProviderResult TypeResult StatusAmy Ja BASS CYTOLOGY ORDERABLES Final ResultPerforming OrganizationAddressCity/State/ZIP CodePhone Number EXTERNAL LAB documented in this encounter Visit Diagnoses Not on filedocumented in this encounter
--- OUTSIDE RECORDS SUMMARY | 2025-03-29 14:14 | XMS_ITS | Clinical Summary ---
Author Organization [facility] Address [address] [place] [address] Care Team Providers Care Wet Machine Operator Name Role Phone Unavailable Primary Care Provider Unavailabl e Social History Tobacco UseTypesPacks/DayYears UsedDateSmoking Tobacco: Never AssessedUT Safety & EnvironmentAnswerDate RecordedFear of Current or Ex-PartnerNot on file 07/08/2023Emotionally AbusedNot on file07/08/2023hysically AbusedNot on file 07/08/2023Sexually AbusedNot on file07/08/2023hysically or Sexually AbusedNot on file07/08/2023CommentsUnknownSex and Gender InformationValueDate RecordedSex Assigned at BirthNot on fileLegal QasRaykuo71/30/2022 12:40 AM EDT Gender IdentityNot on fileSexual OrientationNot on file Plan of Treatment Not on file
--- OUTSIDE RECORDS SUMMARY | 2025-03-29 14:14 | XMS_ITS | Clinical Summary ---
Author Organization [facility] tem Address [facility] [place] [address] Care Team Providers Care Examination Supervisor Name Role Phone Jayson Tatum MD Primary Care Provider [phone] Family History Medical HistoryRelationNameCommentsBreast cancerMaternal AuntRelationNameStatus CommentsMaternal Aunt Social History Tobacco UseTypesPacks/DayYears UsedDateSmoking Tobacco: Never AssessedChildcare AnswerDate RpipflvrTqurybsgtVnngdma97/12/2019EmploymentAnswerDate Recorded SbsxmmvtgjNslgwpv11/12/2019Purpose - LifeAnswerDate RecordedPurpose and direction in wuuyQjixpum33/11/2021CommentsUnknownSex and Gender InformationValueDate RecordedSex Assigned at BirthNot on fileLegal SexFemale 10/03/2015 10:01 AM EDTGender IdentityNot on fileSexual OrientationNot on file Plan of Treatment Health MaintenanceDue DateLast DoneCommentsDepression Ramnzgque55/04/1992Tobacco Uaojxwijg82/04/1992Adult BMI Juqyjkjfs62/04/1998DTaP,Tdap and Td Vaccines (1 - Tdap)01/18/1999Pap Smear01/18/2001Influenza Vfyaszv5001/15/2025 Medical Devices Not on file Insurance Care Teams Team MemberRelationshipSpecialtyStart DateEnd Date Jayson Tatum MD [facility]02/02/17
--- OUTSIDE RECORDS SUMMARY | 2025-03-29 14:14 | XMS_ITS | Encounter Summary ---
Author Organization [facility] Address [address] [place] [address] Care Team Providers Care Forest Resources Professor Name Role Phone Unavailable Primary Care Provider Unavailabl e Encounter Details DateTypeDepartmentCare Team (Latest Contact Info)Idcognbahwl71/29/2025linisync Result Encounter [facility] External Department Unsolicited Magaly Peres, PA [address] [facility] [address] [place], [facility] Social History Tobacco UseTypesPacks/DayYears UsedDateSmoking Tobacco: Never Assessed CommentsUnknownSex and Gender InformationValueDate RecordedSex Assigned at Not on fileLegal DiwXezbnb14/15/2023 7:21 PM EDTGender IdentityNot on fileSexual OrientationNot on filedocumented as of this encounter Plan of Treatment DateTypeDepartmentCare Team (Latest Contact Info)Jvcagpodbnt35/04/2026 3:00 PM ESTProcedure Visit NOM[facility]il MARCELO [address] [facility] [place] [address] Magaly Peres PA [address] [facility] [address] [place], [place] [address] documented as of this encounter Procedures Procedure NamePriorityDate/TimeAssociated DiagnosisCommentsIGP,APTIMA HPV,AGE VSCYNctmpfw78/29/2025 3:00 PM EDT documented in this encounter Results * IGP,APTIMA HPV,AGE GDLN (03/14/2025 3:00 [...] at: 01 =G ?[facility] ?? [address] [place] ??[phone] ?? Ana Varela MD, IGP, APTIMA HPV, RFX 16/18,45Note.TBHComment: ?? TESTS ? RESULT ??FLAG ??UNITS ?REF RANGE ??LAB DIAGNOSIS: ?02 ?? NEGATIVE FOR INTRAEPITHELIAL LESION OR MALIGNANCY. Specimen adequacy: ?02 ?? Satisfactory for evaluation. No endocervical component is identified. Performed by: ? 02 ?? Katherine Burk Enterprise Solutions Architect (ASCP) . ? 02 Note: ? Note [...] pap test was interpreted ?? using the [employer]TM) Cervical Algorithm whole ?? slide imaging system. HPV Genotype Reflex ?? Note ?02 ?? Criteria not met, HPV Genotype not performed. ?FLAG LEGEND: ?L-Low Normal,H-High Normal,LL-Alert Low,HH-Alert High <-Panic Low,>-Panic High,A-Abnormal,AA-Critical Abnormal Performed at: 02 WB ?[facility] ?? [address] [place], [place] ??[phone] ?? Ana Varela MD, HPV APTIMANegativeNegativeTBHComment: This nucleic acid amplification test detects fourteen high- risk HPV types (16,18,31,33,35,39,45,51,52,56,58,59,66,68) without differentiation. Performed at: ??=G - [facility] ??[id number] Bundling Machine Operator: Ana Varela MD, Phone: ??[phone] Performed at: ??WB - [facility] ??[id number] Bundling Machine Operator: Ana Varela MD, Phone: ??[phone] Specimen (Source)Anatomical Location / LateralityCollection Method / Volume Collection TimeReceived Time03/14/2025 3:00 PM EDT1 9:21 PM EDT Narrative [facility] - 03/19/2025 5:08 PM EST BRUSH-SPATULA CERVIX ENDOCERVIX Authorizing ProviderResult TypeResult StatusAmy [facility] BLOOD ORDERABLES Final ResultPerforming OrganizationAddressCity/State/ZIP CodePhone Number [facility] documented in this encounter Visit Diagnoses Not on filedocumented in this encounter
[2025-03-29 14:30] LABS: Hematocrit 44.3 % (36.0-48.0); Hemoglobin 14.8 g/dL (12.0-16.0); Immature Granulocytes Abs Auto 0.01 10^3/uL (0.00-0.03); Immature Granulocytes Pct Auto 0.2 % (0.0-0.5); Lymphocytes Absolute Auto 2.1 10^3/uL (1.2-3.8); Mean Corpuscular HGB Conc 33.4 g/dL (29.9-35.2); Mean Corpuscular Hemoglobin 30.6 pg (26.7-34.0); Mean Corpuscular Volume 91.5 fL (81.0-99.0); Platelet Count 297 10^3/uL (150-450); Red Blood Count 4.84 10^6/uL (4.20-5.40); White Blood Count 6.5 10^3/uL (4.0-11.0)
--- NOTE | 2025-03-29 14:33 | MM_ITS ---
Patient Name: YORDY CARDOSO MR#: [id number] : 1980 Exam Date: 03/29/2025 Ordering Doctor: SUSY SINGH . RADIOLOGY REPORT PROCEDURE: MM TOMOSYNTHESIS SCREENING BI COMPARISON: MG MAMM SCREEN 3D SUDHIR CAD, 09/03/2021. MG MAMM SUDHIR DIAG W CAD, 02/02/2017. MG MAMM SUDHIR DIAG W CAD, 10/10/2015. INDICATIONS: screening for malignant neoplasm Calculator Name NCI Breast Cancer Risk Assessment Tool 5 Year Breast Cancer Risk Not Reported. Lifetime Breast Cancer Risk Not Reported. Personal Breast Cancer No Personal Ovarian Cancer No Treatments None Family Cancers None LOCATION: [facility] BREAST COMPOSITION: The breasts are heterogeneously dense, which may obscure small masses. FINDINGS: RIGHT BREAST: No significant suspicious finding. LEFT BREAST: No significant suspicious finding. DIAGNOSTIC CATEGORY 1--NEGATIVE. RECOMMENDATIONS: ROUTINE MAMMOGRAM AND CLINICAL EVALUATION IN 12 MONTHS. Dictated by: Sean Arnold DO on 03/29/2025 at 16:17 Approved by: Sean Arnold DO on 03/29/2025 at 16:18
[2025-03-29 15:45] LABS: Alanine Aminotransferase 25 U/L (14-59); Albumin Globulin Ratio 1.1; Albumin Level 3.9 g/dL (3.4-5.0); Alkaline Phosphatase 90 U/L (46-116); Anion Gap 8.8; Aspartate Amino Transferase 18 U/L (15-37); Blood Urea Nitrogen 8.0 mg/dL (7.0-18.0); Calcium 9.1 mg/dL (8.5-10.1); Carbon Dioxide 30.4 mmol/L (21.0-32.0); Chloride 105 mmol/L (98-107); Cholesterol 258 mg/dL (<=200); Estimated GFR (African America >60 (>=60 mL/min/1.73m^2); Estimated GFR (Non-African Ame >60 (>=60 mL/min/1.73m^2); Globulin 3.4 g/dL; Glucose 90 mg/dL (74-106); Potassium 4.2 mmol/L (3.5-5.1); Sodium 140 mmol/L (136-145); Thyroid Stimulating Hormone 1.799 uIU/mL (0.358-3.740); Total Protein 7.3 g/dL (6.4-8.2)
== END 2025-03-29 14:10 | disposition home or self-care (01) ==
LOC: MAMMO 14:12
PROVIDERS: Visit Provider Physician Assistant
DX: Z12.31 Encounter for screening mammogram for malignant neoplasm of breast (principal); Z01.419 Encounter for gynecological examination (general) (routine) without abnormal findings
CPT/HCPCS: 36415; 77063; 77067; 80053; 82465; 83036; 84443; 85025

== ENCOUNTER 2025-05-15 13:44 | Outpatient (OUT) | payer OTHER, SELFPAY ==
--- OUTSIDE RECORDS SUMMARY | 2025-05-15 13:45 | XMS_ITS | Clinical Summary ---
Author Organization [facility] Address [address] [place] [address] Care Team Providers Care Gas Load Dispatcher Name Role Phone Unavailable Primary Care Provider Unavailabl e Allergies No known active allergies Medications No known medications Encounters DateTypeDepartmentCare TmfqBkyhglievft32/24/2025Telephone [facility] [address] [place] [address] Aravind Graf, 04/09/2025bstract [facility] OBGYN [address] [place] [address] Aravind Graf DO 5Clinisync Result Encounter [facility] External Department Unsolicited Magaly Singh PA 5Clinisync Result Encounter [facility] External Department Unsolicited Magaly Singh PA 03/28/2025Orders Only [facility] [address]ELO [address] [place] [address] Haleigh Good MA 03/22/2025 2:50 PM ESTClinical Support [facility] MARCELO [address] [place] [address] Family history of breast hzuxnr3303/22/2025bstract [facility] CHEEKN [address] [place] [address] Aravind Graf DO 03/14/2025 3:00 PM EDTProcedure Visit [facility] MARCELO [address] [place] [address] [place] [phone] Magaly Singh PA Well woman exam with routine gynecological exam; Encounter for screening mammogram for malignant neoplasm of vvqkyi9803/14/2025 Clinisync Result Encounter [facility] External Department Unsolicited Magaly Singh PA 03/14/2025amboo flowsheet [facility] [address] [facility] [place] [address] Maagly Singh PA 02/15/2025Telephone [facility] [address]ARCELO [address] [place] [address] Zeenat Dorsey MA from Last 3 Months Social History Tobacco UseTypesPacks/DayYears UsedDateSmoking Tobacco: Never Assessed CommentsUnknownSex and Gender InformationValueDate RecordedSex Assigned at Not on fileLegal PqxXgkybh45/15/2023 7:21 PM EDTGender IdentityNot on fileSexual OrientationNot on file Last Filed Vital Signs Vital SignReadingTime TakenCommentsBlood Jgssdogf528/8603/22/2025 3:17 PM EST Pulse--Temperature--Respiratory Rate--Oxygen Saturation--Inhaled Oxygen Concentration--Ttyjez03.8 kg (171 lb 8 oz)03/22/2025 3:17 PM WIXKqoojn495.6 cm (5' 6 )03/14/2025 3:10 PM EDTBody Mass Index27.6803/14/2025 3:10 PM EDT Plan of Treatment DateTypeDepartmentCare Team (Latest Contact Info)Gpawyyruihi52/04/2026 3:00 PM ESTProcedure Visit [facility] MARCELO [address] [place] [address] Magaly Singh PA [address] [facility] [address] [place], [place] [phone] Procedures Procedure NamePriorityDate/TimeAssociated DiagnosisCommentsMM TOMOSYNTHESIS SCREENING BI03/29/2025 4:18 PM EST ALL THYROID STIM JSPHXOHOashfuz12/13/2025 2:24 PM EST ALL UVHDQTHWNEUBfrfbbi93/13/2025 2:24 PM EST [facility] CMP (CMP) (FOR REMOTE [facility] USE)Qnflini3503/29/2025 2:24 PM EST MLR HEMOGLOBIN J1IHgxydgz21/13/2025 2:24 PM EST ALL CBC WITH AUTO JGKFFdtnemw95/13/2025 2:24 PM EST IGP,APTIMA HPV,AGE CCUCOplclga30/29/2025 3:00 PM EDT PAP TEST, DETWBRUCEsrxfss06/29/2025 12:00 AM EDTfrom Last 3 Months Results * MM TOMOSYNTHESIS SCREENING BI (03/29/2025 4:18 PM EST)Anatomical Region LateralityModalityOtherSpecimen (Source)Anatomical Location / Laterality Collection Method / VolumeCollection TimeReceived Time03/29/2025 4:18 PM EST [facility] 03/29/2025 4:18 PM EST [facility] ?[address] ? [place] [address] ? Mammography Report ? Signed ? Patient: SHOBHA CARDOSO L ?MR#: [id number] ?? : 1980 ?Acct:[id number] ?? Age/Sex: 45 / F ?ADM Date: 03/29/ ?? Loc: MAMMO ? Attending Dr: Magaly Singh ? Ordering Physician: Magaly Singh ?Results: ? Date of Service: 03/29/25 ?Follow Up: ? Procedure(s): MM tomosynthesis screening BI ?? Accession Number(s): [id number] ? cc: Magaly Singh; Physician,Non-Staff M.D. ? Patient Name: ? SHOBHA CARDOSO ? MR#: [id number] ? : 1980 ? Exam Date: 03/29/2025 ?? Ordering Doctor: SUSY SINGH . ? RADIOLOGY REPORT ? PROCEDURE: ? MM TOMOSYNTHESIS SCREENING BI ? COMPARISON: ? MG MAMM SCREEN 3D SUDHIR CAD, 09/03/2021. ??MG MAMM SUDHIR DIAG W CAD, ?? 02/02/2017. ??MG MAMM SUDHIR DIAG W CAD, 10/10/2015. ? INDICATIONS: ? screening for malignant neoplasm ? Calculator Name ? NCI Breast Cancer Risk Assessment Tool ?? 5 Year Breast Cancer Risk ? Not Reported. ?? Lifetime Breast Cancer Risk ? Not Reported. ?? Personal Breast Cancer ?No ?? Personal Ovarian Cancer ? No ?? Treatments ? None ?? Family Cancers ? None ? LOCATION: ? [facility] ? BREAST COMPOSITION: ? The breasts are heterogeneously dense, which may ?? obscure small masses. ? FINDINGS: ? RIGHT BREAST: ??No significant suspicious finding. ? LEFT BREAST: ??No significant suspicious finding. ? DIAGNOSTIC CATEGORY 1--NEGATIVE. ? RECOMMENDATIONS: ? ROUTINE MAMMOGRAM AND CLINICAL EVALUATION IN 12 MONTHS. ? Dictated by: Sean Arnold DO on 03/29/2025 at 16:17 ? Approved by: Sean Arnold DO on 03/29/2025 at 16:18 ? Dictated By: ?Sean Arnold.O. ? Signed By: ?03/29/25 1618 ? DD/ 1618 ? TD/TT: ? Roller Man: Procedure Note Radiology, Radiologist, MD - 03/29/2025 [facility] [place] [id number] Mammography Report Signed Patient: SHOBHA CARDOSO LMR#: [id number] : 1980Acct:[id number] Age/Sex: 45 / FADM Date: 03/29/25 Loc: MAMMO Attending Dr: Magaly Singh Ordering Physician: Magaly SinghResults: Date of Service: 03/29/25Follow Up: Procedure(s): MM tomosynthesis screening BI Accession Number(s): [id number] cc: Magaly Singh; Physician,Non-Staff M.D. Patient Name: SHOBHA CARDOSO MR#: [id number] : 1980 Exam Date: 03/29/2025 Ordering Doctor: SUSY SINGH . RADIOLOGY REPORT PROCEDURE: MM TOMOSYNTHESIS SCREENING BI COMPARISON: MG MAMM SCREEN 3D SUDHIR CAD, 09/03/2021. MG MAMM SUDHIR DIAG WCAD, 02/02/2017. MG MAMM SUDHIR DIAG W CAD, 10/10/2015. INDICATIONS: screening for malignant neoplasm Calculator Name NCI Breast Cancer Risk Assessment Tool 5 Year Breast Cancer Risk Not Reported. Lifetime Breast Cancer Risk Not Reported. Personal Breast Cancer No Personal Ovarian Cancer No Treatments None Family Cancers None LOCATION: [facility] BREAST COMPOSITION: The breasts are heterogeneously dense, which may obscure small masses. FINDINGS: RIGHT BREAST: No significant suspicious finding. LEFT BREAST: No significant suspicious finding. DIAGNOSTIC CATEGORY 1--NEGATIVE. RECOMMENDATIONS: ROUTINE MAMMOGRAM AND CLINICAL EVALUATION IN 12 MONTHS. Dictated by: Sean Arnold DO on 03/29/2025 at 16:17 Approved by: Sean Arnold DO on 03/29/2025 at 16:18 Dictated By: Sean Arnold D.O. Signed By:03/29/258 DD/ 17 TD/TT: Roller Man: Authorizing ProviderResult TypeResult StatusMagaly Haskinsey PACLINISYNC IMAGINGFinal Result * MLR HEMOGLOBIN A1C (03/29/2025 2:24 PM EST)ComponentValueRef RangeTest Method Analysis TimePerformed AtPathologist SignatureGLYCOHEMOGLOBIN A1C4.74.5 - 6.2 %TBHComment: ADA RECOMMENDED LIMIT 4.0 - 6.0 ADA THERAPEUTIC TARGET < 7.0 ACTION SUGGESTED > 7.0 ESTIMATED AVERAGE AWKANAR83jr/dLTBHSpecimen (Source)Anatomical Location / LateralityCollection Method / VolumeCollection TimeReceived Time03/29/2025 2:24 PM EST03/29/2025 2:26 PM EST Narrative [facility] - 03/29/2025 3:38 PM EST Authorizing ProviderResult TypeResult StatusAmy Otis PACLINISYNCFinal Result Performing OrganizationAddressCity/State/ZIP CodePhone Number [facility] * [facility] CMP (CMP) (FOR REMOTE [facility] USE) (03/29/2025 2:24 PM EST)ComponentValueRef RangeTest MethodAnalysis TimePerformed AtPathologist DwnzroujzOIQOXE858686 - 145 mmol/LTBHPOTASSIUM4.23.5 - 5.1 mmol/OKTGWNKKCAHH98386 - 107 mmol/LTBH CARBON TUOLIQH67.421.0 - 32.0 mmol/LTBHANION GAP8.9XJWQWIHKYB5247 - 106 mg/dL TBHBLOOD UREA NITROGEN8.07.0 - 18.0 mg/dLTBHCREATININE0.680.55 - 1.02 mg/dLTBH TBH EGFR-AF CUBAN>60>=60 mL/min/1.73m 2TBHTBH EGFR-NON AF CUBAN>60>=60 mL/min/1.73m 2TBHBUN CREATININE RATIO11.7JJHHJMBXZO2.18.5 - 10.1 mg/dLTBH BILIRUBIN TOTAL0.20.2 - 1.0 mg/dLTBHASPARTATE AMINO PIVAAQLPXCE5782 - 37 U/L TBHALANINE CRHYALHHADTLJLVM4133 - 59 U/LTBHALKALINE XMMGXRPBGEI8243 - 116 U/L TBHTOTAL PROTEIN7.36.4 - 8.2 g/dLTBHALBUMIN LEVEL3.93.4 - 5.0 g/dLTBHGLOBULIN 3.4g/dLTBHALBUMIN GLOBULIN RATIO1.1TBHSpecimen (Source)Anatomical Location / LateralityCollection Method / VolumeCollection TimeReceived Time03/29/2025 2:24 PM EST03/29/2025 2:26 PM EST Narrative [facility] - 03/29/2025 3:53 PM EST Authorizing ProviderResult TypeResult StatusAmy Ja PACLINISYNCFinal Result Performing OrganizationAddressCity/State/ZIP CodePhone Number [facility] * ALL THYROID STIM HORMONE (03/29/2025 2:24 PM EST)ComponentValueRef RangeTest MethodAnalysis TimePerformed AtPathologist SignatureTHYROID STIMULATING HORMONE1.7990.358 - 3.740 uIU/mLTBHSpecimen (Source)Anatomical Location / LateralityCollection Method / VolumeCollection TimeReceived Time03/29/2025 2:24 PM EST03/29/2025 2:26 PM EST Narrative [facility] - 03/29/2025 3:53 PM EST Authorizing ProviderResult TypeResult StatusAmy Ja PACLINISYNCFinal Result Performing OrganizationAddressCity/State/ZIP CodePhone Number [facility] * (ABNORMAL) ALL CHOLESTEROL (03/29/2025 2:24 PM EST)ComponentValueRef RangeTest MethodAnalysis TimePerformed AtPathologist YvunypxldISSBKDKABLT564(H)<=200 mg/dLTBHSpecimen (Source)Anatomical Location / LateralityCollection Method / VolumeCollection TimeReceived Time03/29/2025 2:24 PM EST03/29/2025 2:26 PM EST Narrative [facility] - 03/29/2025 3:53 PM EST Authorizing ProviderResult TypeResult StatusAmy Ja ROUSEINISYNCFinal Result Performing OrganizationAddressCity/State/ZIP CodePhone Number [facility] * (ABNORMAL) ALL CBC WITH AUTO DIFF (03/29/2025 2:24 PM EST)ComponentValueRef RangeTest MethodAnalysis TimePerformed AtPathologist SignatureTBH WBC6.54.0 - 11.0 10 3/uLTBHTBH RBC4.844.20 - 5.40 10 6/uLTBHTBH HGB14.812.0 - 16.0 g/dLTBH TBH HCT44.336.0 - 48.0 %TBHTBH MCV91.581.0 - 99.0 fLTBHTBH MCH30.626.7 - 34.0 pgTBHTBH MCHC33.429.9 - 35.2 g/dLTBHTBH RDW11.811.0 - 15.0 %TBHTBH FZI841427 - 450 10 3/uLTBHTBH MPV9.0(L)9.5 - 13.5 fLTBHNEUTROPHILS PERCENT AUTO58.343.0 - 75.0 %TBHLYMPHOCYTES PERCENT AUTO31.520.5 - 60.0 %TBHMONOCYTES PERCENT AUTO7.4 1.7 - 12.0 %TBHTBH EO %2.30.9 - 7.0 %TBHBASOPHILS PERCENT AUTO0.30.2 - 2.0 % TBHIMMATURE GRANULOCYTES PCT AUTO0.20.0 - 0.5 %TBHNEUTROPHILS ABSOLUTE AUTO3.8 1.4 - 6.5 10 3/uLTBHLYMPHOCYTES ABSOLUTE AUTO2.11.2 - 3.8 10 3/uLTBHMONOCYTES ABSOLUTE AUTO0.50.3 - 0.8 10 3/uLTBHTBH EO #0.20.0 - 0.7 10 3/uLTBHBASOPHILS ABSOLUTE AUTO0.00.0 - 0.1 10 3/uLTBHIMMATURE GRANULOCYTES ABS AUTO0.010.00 - 0.03 10 3/uLTBHSpecimen (Source)Anatomical Location / LateralityCollection Method / VolumeCollection TimeReceived Time03/29/2025 2:24 PM EST03/29/2025 2:26 PM EST Narrative [facility] - 03/29/2025 2:31 PM EST Authorizing ProviderResult TypeResult StatusAmy Otis PACLINISYNCFinal Result Performing OrganizationAddressCity/State/ZIP CodePhone Number [facility] * IGP,APTIMA HPV,AGE GDLN (03/14/2025 3:00 PM [...] at: 01 =G ?[facility] [place] ?? [address] [place] ??[phone] ?? Ana Varela MD, IGP, APTIMA HPV, RFX 16/18,45Note.TBHComment: ?? TESTS ? RESULT ??FLAG ??UNITS ?REF RANGE ??LAB DIAGNOSIS: ?02 ?? NEGATIVE FOR INTRAEPITHELIAL LESION OR MALIGNANCY. Specimen adequacy: ?02 ?? Satisfactory for evaluation. No endocervical component is identified. Performed by: ? 02 ?? Katherine Burk, Peer Support Specialist (ASCP) . ? 02 Note: ? Note [...] pap test was interpreted ?? using the [employer](R) Flurry(TM) Cervical Algorithm whole ?? slide imaging system. HPV Genotype Reflex ?? Note ?02 ?? Criteria not met, HPV Genotype not performed. ?FLAG LEGEND: ?L-Low Normal,H-High Normal,LL-Alert Low,HH-Alert High <-Panic Low,>-Panic High,A-Abnormal,AA-Critical Abnormal Performed at: 02 WB ?[facility] ?? [address] [place], [place] ??[phone] ?? Ana Varela MD, HPV APTIMANegativeNegativeTBHComment: This nucleic acid amplification test detects fourteen high- risk HPV types (16,18,31,33,35,39,45,51,52,56,58,59,66,68) without differentiation. Performed at: ??=G - [facility] [address] ??[id number] Graphic Design Teacher: Ana Varela MD, Phone: ??[phone] Performed at: ??WB - [facility] [address] ??[id number] Graphic Design Teacher: Ana Varela MD, Phone: ??[phone] Specimen (Source)Anatomical Location / LateralityCollection Method / Volume Collection TimeReceived Time03/14/2025 3:00 PM EDT1 9:21 PM EDT Narrative [facility] - 03/19/2025 5:08 PM EST BRUSH-SPATULA CERVIX ENDOCERVIX Authorizing ProviderResult TypeResult StatusAmy Ja PALAB BLOOD ORDERABLES Final ResultPerforming OrganizationAddressCity/State/ZIP CodePhone Number [facility] * PAP TEST, EXTERNAL (03/14/2025 12:00 AM EDT) Narrative Authorizing ProviderResult TypeResult StatusAmy Otis PALAB CYTOLOGY ORDERABLES Final ResultPerforming OrganizationAddressCity/State/ZIP CodePhone Number EXTERNAL LAB from Last 3 Months Insurance [employer] [phone]
--- OUTSIDE RECORDS SUMMARY | 2025-05-15 13:45 | XMS_ITS | Clinical Summary ---
Author Organization [employer] [facility] tem Address [id number] [place] [address] Care Team Providers Care Dielectric Embossing Machine Operator Name Role Phone Jayson Tatum MD Primary Care Provider [phone] Family History Medical HistoryRelationNameCommentsBreast cancerMaternal AuntRelationNameStatus CommentsMaternal Aunt Social History Tobacco UseTypesPacks/DayYears UsedDateSmoking Tobacco: Never AssessedChildcare AnswerDate HuogkxzzZklcwdlbnFywafvc50/12/2019EmploymentAnswerDate Recorded XikfmavfqgJfvdqps17/12/2019Purpose - LifeAnswerDate RecordedPurpose and direction in pgwgDwrorzr00/11/2021CommentsUnknownSex and Gender InformationValueDate RecordedSex Assigned at BirthNot on fileLegal SexFemale 10/03/2015 10:01 AM EDTGender IdentityNot on fileSexual OrientationNot on file Plan of Treatment Health MaintenanceDue DateLast DoneCommentsDepression Zwuhrvcqj08/04/1992Tobacco Bhgtrxuyb45/04/1992Adult BMI Dkxzgoudc30/04/1998DTaP,Tdap and Td Vaccines (1 - Tdap)01/18/1999Pap Smear01/18/2001Influenza Zahagce8101/15/2025 Medical Devices Not on file Insurance Care Teams Team MemberRelationshipSpecialtyStart DateEnd Date Jayson Tatum MD [facility]02/02/17
--- OUTSIDE RECORDS SUMMARY | 2025-05-15 13:45 | XMS_ITS | Clinical Summary ---
Author Organization [facility] Address [address] [place] [address] Care Team Providers Care Instrument Sterilizer Name Role Phone Unavailable Primary Care Provider Unavailabl e Social History Tobacco UseTypesPacks/DayYears UsedDateSmoking Tobacco: Never AssessedUT Safety & EnvironmentAnswerDate RecordedFear of Current or Ex-PartnerNot on file 07/08/2023Emotionally AbusedNot on file07/08/2023hysically AbusedNot on file 07/08/2023Sexually AbusedNot on file07/08/2023hysically or Sexually AbusedNot on file07/08/2023CommentsUnknownSex and Gender InformationValueDate RecordedSex Assigned at BirthNot on fileLegal JnbIelxzg60/30/2022 12:40 AM EDT Gender IdentityNot on fileSexual OrientationNot on file Plan of Treatment Not on file
--- OUTSIDE RECORDS SUMMARY | 2025-05-15 15:19 | XMS_ITS | CCD ---
Author Organization [facility] Care Team Providers Care Regional Director Of Admissions Name Role Phone FAWWAD, VALLECILLO H Admitting [...] Care Unavailable FAWWAD, VALLECILLO H Consulting Unavailable Unavailable Primary Care Provider UnavailAravind Mack Referring Unavailable Nicho GOMEZ Attending Unavailable MAGALY SINGH Attending Unavailable Problems Active Problems Problem ClassificationProblemDateDocumented DateEpisodic/ChronicCardiac dysrhythmias (1 source)Ventricular premature depolarization; Translations: [VENTRICULR PREMATURE DEPOLARIZATION]Onset: 76-35-3830CtpeobnHtiot screening for suspected conditions (not mental disorders or infectious disease) (11 sources)Encounter for screening mammogram for malignant neoplasm of breast; Translations: [Encounter for screening for malignant neoplasm of cervix]Onset: 97-15-1091Iyhjxdhz Past or Other Problems Problem ClassificationProblemDateDocumented DateEpisodic/ChronicCardiac dysrhythmias (5 sources)Palpitations; Translations: [PALPITATIONS]Onset: 67-58-1699Najnaxov Immunizations and screening for infectious disease (1 source)Encounter for screening for human papillomavirus (HPV); Translations: [ENC SCREENING HUMAN PAPILLOMAVIRUS]Onset: 97-83-1692Nvfschhv Results Test NameValueInterpretationReference RangeFacilityIGP,APTIMA HPV,AGE GDLNon 23-84-7952GVA GDLN ACOG TESTINGNote.NOMS HealthcareComment on above:TESTS RESULT FLAG UNITS REF RANGE LAB Clinician Provided Cytology Information Source.............Cervix;Endocervix No. of containers..01 ThinPrep Vial Age Algo ACOG Janine... 30-65 01 FLAG LEGEND: L-Low Normal,H-High Normal,LL-Alert Low,HH-Alert High <-Panic Low,>-Panic High,A-Abnormal,AA-Critical Abnormal Performed at: 01 =[address] [facility] [place] [address] Ana Varela MD, HPV APTIMANegativeNegativeNOMS HealthcareComment on above:This nucleic acid amplification test detects fourteen high- risk HPV types (16,18,31,33,35,39,45,51,52,56,58,59,66,68) without differentiation. Performed at: = - [address], [place] [id number] Logging Tractor Operator: Ana Varela MD, Phone: [phone] Performed at: - [address] [id number] Logging Tractor Operator: Ana Varela MD, Phone: [phone] IGP, APTIMA HPV, RFX 16/18,45Note.NOMS HealthcareComment on above:TESTS RESULT FLAG UNITS REF RANGE LAB DIAGNOSIS: 02 NEGATIVE FOR INTRAEPITHELIAL LESION OR MALIGNANCY. Specimen adequacy: 02 Satisfactory for evaluation. No endocervical component is identified. Performed by: Joseph Burk, Small Package And Bundle Sorter Clerk ([facility]) . 02 Note: Note 02 The Pap smear is a screening test designed to aid in the detection of premalignant and malignant conditions of the uterine cervix. It is not a diagnostic procedure and should not be used as the sole means of detecting cervical cancer. Both false-positive and false-negative reports do occur. Test Methodology: Note 02 This liquid based ThinPrep(R) pap test was interpreted using the [employer](R) bluepulse(TM) Cervical Algorithm whole slide imaging system. HPV Genotype Reflex Note 02 Criteria not met, HPV Genotype not performed. FLAG LEGEND: L-Low Normal,H-High Normal,LL-Alert Low,HH-Alert High <-Panic Low,>-Panic High,A-Abnormal,AA-Critical Abnormal Performed at: 02 [facility] [address], [place] [address] Ana Varela MD, BRUSH-SPATULA CERVIX ENDOCERVIX [facility] CenterMG MAMM SCREEN 3D SUDHIR CADon 85-00-0394PK MAMM SCREEN 3D SUDHIR CADPatient: SHOBHA CARDOSO Exam Date: 09/03/2021 : 1980 Gender:F Ordering : DR DAMARIS SARAVIA . Admission #: [id number] Family : Order #: [id number] CLICK HERE TO VIEW EXAM RADIOLOGY REPORT [...] Treatments None Family Cancers None LOCATION: [facility] BREAST COMPOSITION: Heterogeneously dense,which may obscure small [...] by: Jose Dumont M.D. on 09/03/2021 at 12:25[facility] Bryan HospitalPA ACOG PANEL 2: 30 to 65on 06-14-2021..NormalThe [facility] Comment on above:Result Comment: Performed at: WBPerformed By: #### [id number] #### [facility] [address] [place] [address] Dr. Arie Clement Gdln ACOG Jobbuaj18-86HwvwfdPvlKettering Health HamiltonComment on above:Performed By: #### [id number] #### [facility] [address] [place] [address] Dr. Arie LondonDIAGNOSIS:CommentNoLutheran Hospital on above: Result Comment: NEGATIVE FOR INTRAEPITHELIAL LESION OR MALIGNANCY. Performed at: WBPerformed By: #### [id number] #### [facility] [address] [place] [address] Dr. Arie LondonHPV AptimaNegativeNormalNegativeThe [facility] on above:Result Comment: This nucleic acid amplification test detects fourteen high-risk HPV types (16,18,31,33,35,39,45,51,52,56,58,59,66,68) without differentiation. Performed at: =GPerformed By: #### [id number] #### [facility] [address] [place] [address] Dr. Arie LondonMethodology:CommentNoLutheran Hospital on above: Result Comment: This liquid based ThinPrep(R) pap test was screened with the use of an image guided system. Performed at: WBPerformed By: #### [id number] #### [facility] [address] [place] [address] Dr. Arie LondonNote:CommentNoLutheran Hospital on above:Result Comment: The Pap smear is a screening test designed to aid in the detection of premalignant and malignant conditions of the uterine cervix. It is not a diagnostic procedure and should not be used as the sole means of detecting cervical cancer. Both false-positive and false-negative reports do occur. . Performed at: WBPerformed By: #### [id number] #### [facility] [address] [place] [address] Dr. Arie LondonPerformed by:CommentNoLutheran Hospital on above: Result Comment: Alida Boyd, Wax Pumper (ASCP) Performed at: WBPerformed By: #### [id number] #### [facility] [address] [place] [address] Dr. Arie LondonSpecimen adequacy:CommentNormalThe Paul HospitalComment on above:Result Comment: Satisfactory for evaluation. No endocervical cells are present. This is consistent with a history of hysterectomy. Performed at: WBPerformed By: #### [id number] #### [facility] [address] [place] [address] Dr. Arie Cantrell M/2D COMPLETEon 06-13-7939GYZVUXBIKW M/2D COMPLETE Patient: SHOBHA CARDOSO Exam Date: 02/14/2021 : 1980 Gender:F Ordering : SHAIKH Heriberto LAIRD . Admission #: [id number] Family : Order #: [id number] CLICK HERE TO VIEW EXAM ECHOCARDIOGRAM REPORT [...] Area(A4C): 16.20 cm2 Left Atrium Systolic Volume(A2C): 83287 mm3 Left Atrium Systolic Volume(A4C): 58774 mm3 Mitral Valve MV E to A [...] by: Guero Han M.D. on 02/14/2021 at 11:58NormalThGrant Hospital AUTO DIFFon 18-24-1613RCVI #0.0 103/ulNormal0.0-0.1The [facility] HospitalComment on above:Performed By: #### CBC #### [facility] [address] [address] Beatrice KarenBasophils/100 WBC (Bld)0.5 %Normal0.2-2.0[facility] Comment on above:Performed By: #### CBC #### [facility] [address] [address] Beatrice KarenEO #0.2 103/ulNormal0.0-0.7The [facility] HospitalComment on above: Performed By: #### CBC #### [facility] [address] [id number] Beatrice KarenEosinophils/100 WBC (Bld)3.5 %Normal0.9-7.0[facility] Comment on above:Performed By: #### CBC #### [facility] [address] [place] [address] Beatrice KarenErythrocyte distribution width (RBC) [Ratio]11.8 %Sbwuql22.0-15.0The [facility] HospitalComment on above:Performed By: #### CBC #### [facility] [address] [place] [address] Beatrice KarenHematocrit (Bld) [Volume fraction]43.5 %Igedui67.0-48.0The [facility] HospitalComment on above:Performed By: #### CBC #### [facility] [address] [place] [address] Beatrice KarenHemoglobin (Bld) [Mass/Vol]14.2 g/tPDrljul09.0-16.0The [facility] HospitalComment on above:Performed By: #### CBC #### [facility] [address] [place] [address] Beatrice KarenIG #0.01 10e3/ulNormal0.00-0.03The [facility] HospitalComment on above:Performed By: #### CBC #### [facility] [address] [place] [address] Beatrice KarenIG %0.2 %Normal0.0-0.5The [facility] HospitalComment on above: Performed By: #### CBC #### [facility] [address] [place] [address] Beatrice KarenLYMPH #2.1 103/ulNormal1.2-3.8The [facility] HospitalCommymichigan medical center gladwin on above: Performed By: #### CBC #### [facility] [address] [place] [address] Beatrice KarenLymphocytes/100 WBC (Bld)33.4 %Vydjcb05.5-60.0[facility] Comment on above:Performed By: #### CBC #### [facility] [address] [place] [address] Beatrice KarenMANUAL DIFF REQNONormalThe [facility] HospitalComment on above: Performed By: #### CBC #### [facility] [address] [place] [address] Beatrice KarenMCH (RBC) [Entitic mass]30.8 iyQxxtcc99.7-34.0[facility] Comment on above:Performed By: #### CBC #### [facility] [address] [place] [address] Beatrice KarenMCHC (RBC) [Mass/Vol]32.6 g/mUVjdsjq30.9-35.2[facility] Comment on above:Performed By: #### CBC #### [facility] [address] [place] [address] Beatrice KarenMCV (RBC) [Entitic vol]94.4 qBJelbgj71.0-99.0[facility] Comment on above:Performed By: #### CBC #### [facility] [address] [place] [address] Beatrice KarenMONO #0.6 103/ulNormal0.3-0.8The [facility] HospitalComment on above: Performed By: #### CBC #### [facility] [address] [place] [address] Beatrice KarenMonocytes/100 WBC (Bld)8.8 %Normal1.7-12.0[facility] Comment on above:Performed By: #### CBC #### [facility] [address] [place] [address] Beatrice KarenNEUT #3.4 103/ulNormal1.4-6.5The [facility] HospitalComment on above: Performed By: #### CBC #### [facility] [address] [place] [address] Beatrice KarenNeutrophils/100 WBC (Bld)53.6 %Ukbujj94.0-75.0[facility] Comment on above:Performed By: #### CBC #### [facility] [address] [address] Beatrice KarenPlatelet mean volume (Bld) [Entitic vol]9.7 fLNormal9.5-13.5The [facility] HospitalComment on above:Performed By: #### CBC #### [facility] [address] [place] [address] Beatrice NppmlINA272 103/rsVechis231-531Pqk [facility] HospitalComment on above: Performed By: #### CBC #### [facility] [address] [place] [address] Beatrice KarenRBC4.61 106/ulNormal4.20-5.40The [facility] HospitalComment on above: Performed By: #### CBC #### [facility] [address] [place] [address] Beatrice KarenWBC6.3 103/ulNormal4.0-11.0The [facility] HospitalComment on above: Performed By: #### CBC #### [facility] [address] [address] Beatrice KarenGLYCOHEMOGLOBIN A1Con 56-63-7800SYQ RECOMMENDATIONADA THERAPEUTIC TARGET 6.0 - 7.0 ACTION SUGGESTED > 7.0NormUC West Chester HospitalComment on above:Performed By: #### A1C #### [facility] [address] [address] Beatrice KarenGlucose [Mass/Vol]100 mg/dLNormUC West Chester HospitalComment on above:Performed By: #### A1C #### [facility] [address] [place] [address] Beatrice XbbsmEjC0v (Bld) [Mass fraction]5.1 %Normal<=6.0[facility] Comment on above:Performed By: #### A1C #### [facility] [address] [place] [address] Beatrice KarenLIPID PROFILEon 05-79-6067NDIH-HDL RATIO NORMSEE BELOWNormUC West Chester HospitalComment on above:Result Comment: 3.3 - 4.4 LOW RISK 4.4 - 7.1 AVERAGE RISK 7.1 - 11.0 MODERATE RISK >11.0 HIGH RISKPerformed By: #### TSH, LIPID, CMP #### [facility] [address] [id number] Beatrice KarenCholesterol [Mass/Vol]190 mg/dLNormal<=200[facility] Comment on above:Performed By: #### TSH, LIPID, CMP #### [facility] [address] [address] Beatrice KarenCholesterol in HDL [Mass/Vol]60 mg/dLParkview Health Bryan Hospital Comment on above:Performed By: #### TSH, LIPID, CMP #### [facility] [address] [place] [address] Beatrice KarenCholesterol in LDL [Mass/Vol]113.6 mg/dLParkview Health Bryan Hospital Comment on above:Performed By: #### TSH, LIPID, CMP #### [facility] [address] [place] [address] Beatrice KarenCholesterol.total/Cholesterol in HDL [Mass ratio]3.2 {ratio}Normal [facility] HospitalComment on above:Performed By: #### TSH, LIPID, CMP #### [facility] [address] [place], [place] [address] Beatrice KarenHDL NORMAL> or = 60 mg/dl - LOW CARDIOVASCULAR RISK <40 mg/dl - HIGH CARDIOVASCULAR RISKParkview Health Bryan HospitalComment on above:Performed By: #### TSH, LIPID, CMP #### [facility] [address] [place] [address] Beatrice KarenLDL CALC NORMALSEE BELOWParkview Health Bryan HospitalComment on above: Result Comment: <100 mg/dl OPTIMAL 100 - 129 mg/dl NEAR OR ABOVE OPTIMAL 130 - 159 mg/dl BORDERLINE HIGH 160 - 189 mg/dl HIGH >190 mg/dl VERY HIGHPerformed By: #### TSH, LIPID, CMP #### [facility] [address] [place] [address] Beatrice KarenTriglyceride [Mass/Vol]82 mg/dLNormal<=150The [facility] Comment on above:Performed By: #### TSH, LIPID, CMP #### [facility] [address] [address] Beatrice KarenVLDL CALC16.4 mg/dLNormalThe [facility] HospitalComment on above: Performed By: #### TSH, LIPID, CMP #### [facility] [address] [address] Beatrice KarenPROF 14(COMP METB)on 08-52-5918Qtvwpxr [Mass/Vol]3.9 g/dLNormal 3.5-5.0M[facility] HospitalComment on above:Performed By: #### TSH, LIPID, CMP #### [facility] [address] [address] Beatrice KarenAlbumin/Globulin [Mass ratio]1.3 {ratio}NormalMiddletown Hospital Comment on above:Performed By: #### TSH, LIPID, CMP #### [facility] [address] [address] Beatrice KarenALP [Catalytic activity/Vol]63 U/HBdmplb49-367FbzMiddletown Hospital Comment on above:Performed By: #### TSH, LIPID, CMP #### [facility] [address] [place] [address] Beatrice KarenALT [Catalytic activity/Vol]20 U/LNormal9-52[facility] Comment on above:Performed By: #### TSH, LIPID, CMP #### [facility] [address] [address] Beatrice KarenAnion gap [Moles/Vol]13.9 mmol/LNormalMiddletown HospitalComment on above:Performed By: #### TSH, LIPID, CMP #### [facility] [address] [place] [address] Beatrice KarenAST [Catalytic activity/Vol]20 U/FIelroz84-08WwxM[facility]let[facility] Hospital Comment on above:Performed By: #### TSH, LIPID, CMP #### [facility] [address] [address] Beatrice KarenBilirubin [Mass/Vol]0.4 mg/dLNormal0.2-1.3TUniversity Hospitals E[facility] Comment on above:Performed By: #### TSH, LIPID, CMP #### [facility] [address] [place] [address] Beatrice KarenCalcium [Mass/Vol]9.1 mg/dLNormal8.4-10.2[facility] Comment on above:Performed By: #### TSH, LIPID, CMP #### [facility] [address] [place] [address] Beatrice KarenChloride [Moles/Vol]104 mmol/TUahags13-376Dmb [facility] Comment on above:Performed By: #### TSH, LIPID, CMP #### [facility] [address] [place] [address] Beatrice KarenCO2 [Moles/Vol]28.3 mmol/CPidqzv05.0-30.0[facility] Comment on above:Performed By: #### TSH, LIPID, CMP #### [facility] [address] [place] [address] Beatrice KarenCreatinine [Mass/Vol]0.93 mg/dLNormal0.52-1.04[facility] Comment on above:Performed By: #### TSH, LIPID, CMP #### [facility] [address] [place] [address] Beatrice KarenEGFR-AF MONEGASQUE>60Normal>=60The [facility] HospitalComment on above: Performed By: #### TSH, LIPID, CMP #### [facility] [address] [place] [address] Beatrice KarenEGFR-NON AF MONEGASQUE>60Normal>=60The [facility] HospitalComment on above:Performed By: #### TSH, LIPID, CMP #### [facility] [address] [place] [address] Beatrice KarenGlobulin (S) [Mass/Vol]3.1 g/dLNormalThe [facility] HospitalComment on above:Performed By: #### TSH, LIPID, CMP #### [facility] [address] [place] [address] Beatrice KarenGlucose [Mass/Vol]91 mg/pFKshmbb35-769Qom [facility] HospitalComment on above:Performed By: #### TSH, LIPID, CMP #### [facility] [address] [place] [address] Beatrice KarenPotassium [Moles/Vol]4.2 mmol/LNormal3.4-5.0[facility] Comment on above:Performed By: #### TSH, LIPID, CMP #### [facility] [address] [place] [address] Beatrice KarenProtein [Mass/Vol]7.0 g/dLNormal6.1-8.2The [facility] HospitalComment on above:Performed By: #### TSH, LIPID, CMP #### [facility] [address] [place] [address] Beatrice KarenSodium [Moles/Vol]142 mmol/HJundvf610-215Qdu [facility] Comment on above:Performed By: #### TSH, LIPID, CMP #### [facility] [address] [place] [address] Beatrice KarenUrea nitrogen [Mass/Vol]18.0 mg/dLCritically high7.0-17.0[facility] HospitalComment on above:Performed By: #### TSH, LIPID, CMP #### [facility] [address] [place] [address] Beatrice KarenUrea nitrogen/Creatinine [Mass ratio]19.4 mg/mgNoKettering Health HamiltonComment on above:Performed By: #### TSH, LIPID, CMP #### [facility] [address] [place] [address] Beatrice KarenTSHon 26-02-8630HJB4.772 uIU/mLNormal0.470-4.680The [facility] HospitalComment on above:Performed By: #### TSH, LIPID, CMP #### [facility] [address] [place] [address] Beatrice KarenTSH RANGESEE BELOWNoKettering Health HamiltonComment on above:Result Comment: <0.34 UIU/ml HYPERTHYROID 0.34-5.60 UIU/ml EUTHYROID >5.60 UIU/ml HYPOTHYROIDPerformed By: #### TSH, LIPID, CMP #### [facility] [address] [address] Beatrice Sampson Vital Signs Date TimeVital SignValuePerforming BfuwmeuwuNnjbzqzg07-15-2242 15:10-0400Body jqblli126.6 cmArosemary JAIN Work Phone: noHeartland Behavioral Health ServicesOgjfctdnqd53-95-0722 15:10-0400Body mass index (BMI) [Ratio]27.81 kg/m2Magaly JAIN Work Phone: [facility] CenterEmppnpuebw33-66-1725 15:10-0400Body tuafdi04.16 kgMagaly JAIN Work Phone: noHeartland Behavioral Health ServicesLcbjpvijkj49-76-5669 15:10-0400Diastolic blood zxhfydqi18 mm[Hg]Magaly JAIN Work Phone: noHeartland Behavioral Health ServicesCfwxbrdhov66-68-5614 15:10-0400Systolic blood ooulfqzg395 mm[Hg]Magaly JAIN Work Phone: noIL Healthcare Encounters Encounter DateEncounter TypeCare ProviderFacilityStart: 51-28-4257ljhvqdopei Aravind R FAZIOFacility:ARLEY Steinbergtart: 03-22-2025 End: 78-78-0980thpljxmmvuWHW RAMEYNot AvailableStart: 44-14-2776gprczyivvyJomka FAZIOFacility: Maryantart: 03-14-2025 End: 57-24-6963Cqpoopw encounter procedureMagaly JAIN Work Phone: noIL HealthcareStart: 03-14-2025 End: 17-02-1361Wkbqrdcg preventive med est patient 40-64yrsArosemary JAIN Work Phone: noSpecialty [facility] at [facility] OBGYNComment on above:Well woman exam with routine gynecological exam; Encounter for screening mammogram for malignant neoplasm of breastStart: 03-14-2025 End: 81-97-1616tejvwvwjzeNAT RAMEYNot AvailableStart: 03-14-2025 End: 27-04-3574Ggxepe nAdrei JAIN Work Phone: [facility] OBGYNStart: 03-14-2025 End: 33-42-4097Jmpqmu Andrei JAIN Work Phone: [facility] OBGYNStart: 03-14-2025 End: 48-48-1544Eqoeoshyw Result EncounterMagaly JAIN Work Phone: [facility] External Department UnsolicitedStart: 09-03-2021 End: 42-30-6500qdxpgtktegAL DAMARIS KARYOLANDAFacility:E7Cyosg: 06-10-2021 End: 10-56-9376irtvhnapneWV DAMARIS SARAVIAFacility:P4Wixek: 03-10-2021 End: 35-87-3116hyjuswsitzIO SHAUN ENAMORADOFacility:Y0Qgmxr: 02-14-2021 End: 61-31-9729gbokjoqsbbBSRKMF H FAWWADFacility:H3Qpalp: 10-12-9896Qvrzpdmfy for general adult medical examination without abnormal findingsANDRES LAIRD [facility] HospitalStart: 01-09-2021 End: 06-86-4221xahlrkcdevHXFONA H FAWWADFacility:P4Esobc: 01-08-2021 End: 64-04-6985mvuikaerhaIZIUHI H FAWWADFacility:R0Lnwpz: 01-08-2021 End: 91-50-6227Qktrolscr for general adult medical examination without abnormal findingsSHAIALPA Saeed FAWWADFacility:H1 Procedures DateProcedureProcedure DetailPerforming ClinicianStart: 14-43-8937UOK,APTIMA HPV,AGE GDLNMagaly JAIN Work Phone: Plan of Treatment DateCare ActivityDetailAuthorStart: 03-20-2026 End: 45-47-2181Mpzncsu encounter ezxnhnfxo49/04/2026 3:00 PM EST Procedure Visit [facility] MARCELO [address] [place] [address] Magaly Singh PA [address] [place] [address] NOMAkil Paul OBGYNStart: 03-22-2025 End: 69-38-9811Zmzrsnse Yousuwc9803/22/2025 2:50 PM EST Clinical Support HAI MARCELO [address] [address] [address] [address] [place], [id number] NOMAkil MackPaul OBGYNStart: 03-14-2025 End: 03-24-1587Jnvqghs encounter qxksrkoko68/29/2025 3:00 PM EDT Procedure Visit NOMAkil MARCELO [address] [place] [id number] Magaly Singh PA [address] [place] [address] ArrivedNO Paul OBGYNComment on above:ArrivedStart: 03-14-2025 End: 30-64-9864FL Breast - bilateral ScreeningBilateral screening mammogram Imaging Routine Encounter for screening mammogram for malignant neoplasm of breast Expected: 03/14/2025 (Approximate), Expires: 05/14/2026NOIL Healthcare Work Phone: comment on above:Expected: 03/14/2025 (Approximate), Expires: 05/14/2026BC W Auto Differential panel - BloodCBC auto differential Lab Routine Well woman exam with routine gynecological exam Ordered: 03/14/2025 [facility]OM[facility] HealthcareComment on above:Ordered: 03/14/2025holesterol [Mass/volume] in Serum or PlasmaCholesterol, total Lab Routine Well woman exam with routine gynecological exam Ordered: 03/14/2025NOIL HealthcareComment on above:Ordered: 03/14/2025omprehensive metabolic 2000 panel - Serum or PlasmaComprehensive metabolic panel Lab Routine Well woman exam with routine gynecological exam Ordered: 03/14/2025NOIL HealthcareComment on above:Ordered: 03/14/2025Hemoglobin A1c/Hemoglobin.total in BloodHemoglobin A1c Lab Routine Well woman exam with routine gynecological exam Ordered: 03/14/2025[facility] HealthcareComment on above: Ordered: 03/14/2025THIN PREP TIS PAP AND HR HPV DNATHIN PREP TIS PAP AND HR HPV DNA Pathology and Cytology Routine Well woman exam with routine gynecological exam Ordered: 03/14/2025[facility] HealthcareComment on above:Ordered: 03/14/2025 Thyrotropin [Units/volume] in Serum or PlasmaTSH Lab Routine Well woman exam with routine gynecological exam Ordered: 03/14/2025[facility] HealthcareComment on above:Ordered: 03/14/2025 Payers DatePayer CategoryPayerPolicy [id number] Health [id number] Health Insurance [id number] 2.16.840.1.230868.3.57[id number] 2.16.840.1.447807.3.57[id number] 2.16.840.1.031399.3.57[id number] 2.16.840.1.054611.3.57[id number] 2.16.840.1.972300.3.57[id number] 2.16.840.1.767344.3.57[id number] 2.16.840.1.238873.3.57[id number] 2.16.840.1.387644.3.579.2.612922-98-7431Hjlo-[id number] Social History DateTypeDetailFacilityTobacco smoking status NHISTobacco smoking consumption unknownSTEWARD HEALTH CARE SYSTEM HealthcareStart: 64-06-9354Imr assigned at birthNot on fileSTEWARD HEALTH CARE SYSTEM HealthcareStart: 71-71-5168VpsAwlxiwPNCX HealthcareGender identityNot on file [facility] Healthcare History of Present illness Narrative 03-14-2025 Note Date & [id number] History of Present illness Narrative* SUSY Wright - 03/14/2025 3:00 PM EDT Reason for Appointment: Patient ID: Shobha Cardoso is a 45 y.o. female who presents for Gynecologic Exam Patient presents today for Annual Exam. MEDICATIONS No current outpatient medications ALLERGIES No [...] No family history on file. SURGICAL HISTORY History reviewed. No pertinent surgical history. REVIEW OF SYSTEMS Review of Systems: Review of Systems Constitutional: Negative. HENT: Negative. Eyes: Negative. Respiratory: Negative. Cardiovascular: Negative. Gastrointestinal: Negative. Genitourinary: Negative. Musculoskeletal: Negative. Skin: Negative. Neurological: Negative. All other systems reviewed and are negative. Hematological: Negative. Endocrine: Negative. Allergic/Immunologic: Negative. OBJECTIVE Objective: Physical Exam Constitutional: Appearance: Normal appearance. Genitourinary: Right Adnexa: not tender and no mass present. Left Adnexa: not tender and no mass present. Cervix is absent. Uterus is absent. Breasts: Breasts are soft. Right: Normal. Left: Normal. HENT: Head: Normocephalic. Nose: Nose normal. Mouth/Throat: Mouth: Mucous membranes are moist. Cardiovascular: Rate and Rhythm: Normal rate. Pulmonary: Effort: Pulmonary effort is normal. Abdominal: General: Bowel sounds are normal. Palpations: Abdomen is soft. Musculoskeletal: General: Normal range of motion. Cervical back: Normal range of motion. Neurological: General: No focal deficit present. Mental Status: She is alert. Skin: General: Skin is warm and dry. Psychiatric: Mood and Affect: Mood normal. Vitals and nursing note reviewed. Exam conducted with a auto mechanics instructor present. Vitals: There is no height or weight on file to calculate BMI. BP: No LMP recorded. ASSESSMENT & PLAN ICD-10-CM 1. Well woman exam with routine gynecological exam Z01.419 THIN PREP TIS PAP AND HR HPV DNA 2. Encounter for screening mammogram for malignant neoplasm of breast Z12.31 Bilateral screening mammogram Bilateral screening mammogram Annual: Patient presents today for an annual exam. Patient states she is doing well and has no complaints. Pap was obtained without difficulty and patient given mammogram order to have scheduled/obtained. Patient states sister passed from cervical CA. She wishes to have otogenic testing performed and honey send referral for colonoscopy Orders Placed This Encounter Procedures Bilateral screening mammogram Follow Up: Patient is to return in one year for annual unless needed otherwise. Documented by Brinda Montero CST on behalf of: SUSY Wright documented in this encounter[facility]IL [facility] Evaluation note Note Date & TypeNoteFacilityEvaluation note* Diagnosis Well woman exam with routine gynecological exam Routine gynecological examination Encounter for screening mammogram for malignant neoplasm of breast documented in this encounter [facility] Summary Purpose Family History No Family History Records FoundNo Family History Records FoundNo Family History Records Found Advance Directives No Advanced Directives Records FoundNo Advanced Directives Records FoundNo Advanced Directives Records Found Additional Source Comments INFORMATION SOURCE (unrecogn ized section and content) DATE CREATED AUTHOR 10/27/2021 [facility] DATE CREATED AUTHOR AUTHOR'S ORGANIZ ATION 03/17/2025 [facility] DATE CREATED AUTHOR AUTHOR'S ORGANIZ ATION 03/24/2025 [facility] EPIC Reason for Visit (unrecogniz ed section and content) ReasonCommentsGynecologic Exam FOR RECORDS PERTAINING TO PATIENTS WHO ARE [...] BE BASED ON THE PRIMARY CLINICAL RECORDS. [facility] [employer] [facility]. provides no warranty or guarantee of the accuracy or completeness of information in this document.
== END 2025-05-15 13:45 | disposition home or self-care (01) ==
LOC: PST 13:44
PROVIDERS: Visit Provider Surgery
DX: Z01.818 Encounter for other preprocedural examination (principal); Z12.11 Encounter for screening for malignant neoplasm of colon